=== PATIENT | female | born 1940 | race Caucasian/White ===

== ENCOUNTER → 2019-05-17 10:12 | Outpatient (CLI) | payer MEDICARE, OTHER, SELFPAY ==
--- NOTE | ~2019-05-17 | MM_ITS ---
EXAMINATION: MM screening alyson BI w kai HISTORY: Screening mammogram TECHNIQUE: Craniocaudal and mediolateral oblique 3-D tomosynthesis images were obtained and synthetic 2-D images were generated. CAD analysis was submitted and interpreted. COMPARISON: 03/30/2018, 03/20/2017, 03/18/2016 bilateral digital screening mammogram examinations BREAST PARENCHYMAL COMPOSITION: There are scattered areas of fibroglandular density. FINDINGS: There is no evidence of suspicious mass, calcification, or architectural distortion to sugg est malignancy in either breast. There has been no suspicious interval change. IMPRESSION: 1. No mammographic evidence of malignancy. 2. Recommend routine screening mammography in one year. BI-RADS Category 1: Negative Reviewed, dictated and finalized at location A. WARE APPLICATIONS ARCHITECT
== END ==
PROVIDERS: PCP Internal Medicine; Visit Provider Obstetrics & Gynecology
DX: Z12.31 Encounter for screening mammogram for malignant neoplasm of breast (principal)
CPT/HCPCS: 77063; 77067

== ENCOUNTER 2019-09-05 09:34 | Outpatient (CLI) | payer MEDICARE, OTHER, SELFPAY ==
--- NOTE | 2019-09-05 09:53 | ECHO_ITS ---
Patient Info Name: Evelyn Gee Age: 78 years : 1940 Gender: Female Ht: 63 in Wt: 125 lbs BSA: 1.59 m2 HR: 68 bpm BP: 154 / 85 mmHg Technical Quality: Excellent Exam Date: 09/05/2019 10:06 AM Exam Location: [facility] Patient Status: Outpatient Admit Date: 09/05/2019 Staff Ordering Physician: Carlos A Linda DO Casing Material Weigher: Izabel Cruz RDCS Attending Provider: Carlos A Linda DO Referring Physician: Maddi VILLALTA; Exam Type: CA echo doppler color flow Study Info Indications R01.1 - Cardiac murmur, unspecified Complete two-dimensional, color flow and Doppler transthoracic echocardiogram is performed. Summary 1. Left ventricular chamber dimension is normal. 2. Left ventricular systolic function is normal, estimated at 60-65%. 3. The left ventricular diastolic function is grade I diastolic dysfunction. 4. E/e' 12 is mildly elevated. 5. Global longitudinal strain is abnormal at -12.4%. 6. There is mild mitral valve regurgitation. 7. There is trace tricuspid valve regurgitation. 8. No pulmonary hypertension, estimated pulmonary arterial systolic pressure is 29 mmHg. 9. Small atheroma in anterior and posterior aortic root. Left Ventricle E/e' 12 is mildly elevated. Global longitudinal strain is abnormal at -12.4%. Left ventricular chamber dimension is normal. Left ventricular systolic function is normal, estimated at 60-65%. The left ventricular diastolic function is grade I diastolic dysfunction. Right Ventricle Right ventricular chamber dimension is normal. Right ventricular systolic function is normal. Left Atria Left atrial chamber dimension is normal. Right Atria Right atrial chamber dimension is normal. Aortic Valve The aortic valve is trileaflet. There is no aortic valve stenosis. There is no aortic valve regurgitation. Pulmonic Valve There is no pulmonic regurgitation. Mitral Valve There is no mitral valve stenosis. There is mild mitral valve regurgitation. Tricuspid Valve There is trace tricuspid valve regurgitation. No pulmonary hypertension, estimated pulmonary arterial systolic pressure is 29 mmHg. Pericardium/Pleural There is no pericardial effusion. Inferior Vena Cava Normal inferior vena cava with >50% collapse upon inspiration consistent with normal right atrial pressure, 5 mmHg. Aorta Small atheroma in anterior and posterior aortic root. The aortic root size at the sinus of Valsalva is normal. Left Ventricular Outflow Tract Name Value Normal LVOT 2D LVOT Diameter 1.9 cm LVOT Doppler LVOT Peak Gradient 3 mmHg LVOT Mean Gradient 2 mmHg LVOT VTI 18 cm LVOT VTI/AV VTI Ratio 0.8 LVOT Stroke Volume 54 ml LVOT CO 3.7 l/min LVOT CI 2.3 l/min/m2 Pulmonic Valve Name Value Normal
== END 2019-09-05 09:35 | disposition home or self-care (01) ==
PROVIDERS: PCP Internal Medicine; Visit Provider Internal Medicine
DX: R01.1 Cardiac murmur, unspecified (principal); I35.1 Nonrheumatic aortic (valve) insufficiency
CPT/HCPCS: 93306

== ENCOUNTER 2019-12-18 10:17 | Outpatient (CLI) | payer MEDICARE, OTHER, SELFPAY ==
--- NOTE | ~2019-12-18 | XR_ITS ---
XR sinus min 3V DATE: 12/18/2019 10:46 INDICATION: Bilateral maxillary and frontal pressure, swelling TECHNIQUE: orion Delacruz, lateral and submental vertical views COMPARISON: None FINDINGS: The paranasal sinuses and mastoid air cells appear normally developed and aerated. No air-f luid levels or opacification of the paranasal sinuses are noted. IMPRESSION: Unremarkable paranasal sinuses and mastoid air cells Reviewed, dictated and finalized at location A.
== END 2019-12-18 10:18 | disposition home or self-care (01) ==
LOC: ANHIMG 10:24
PROVIDERS: PCP Internal Medicine; Visit Provider Otolaryngology
DX: J32.9 Chronic sinusitis, unspecified (principal)
CPT/HCPCS: 70220

== ENCOUNTER → 2020-05-22 16:52 | Outpatient (CLI) | payer MEDICARE, OTHER, SELFPAY ==
--- NOTE | ~2020-05-22 | MM_ITS ---
EXAMINATION: MM screening alyson BI w kai HISTORY: Screening TECHNIQUE: Craniocaudal and mediolateral oblique 3-D tomosynthesis images were obtained and synthetic 2-D images were generated. CAD analysis was submitted and interpreted. COMPARISON: Comparison to multiple prior studies sequentially, with oldest reviewed study dated 04/2014. BREAST PARENCHYMAL COMPOSITION: There are scattered areas of fibroglandular density. FINDINGS: There is developing asymmetry in the subareolar location of the right breast. The left leandro st is stable without evidence for malignancy. IMPRESSION: 1. Developing right breast asymmetry. 2. Additional mammographic views and possible breast ultrasound are recommended. BI-RADS Category 0: Incomplete: Needs additional imaging evaluation. Reviewed, dictated and finalized at location A. IMPRESSION: 1. Developing right breast asymmetry. 2. Additional mammographic views and possible breast ultrasound are recommended . BI-RADS Category 0: Incomplete: Needs additional imaging evaluation.
== END ==
PROVIDERS: Visit Provider Obstetrics & Gynecology
DX: Z12.31 Encounter for screening mammogram for malignant neoplasm of breast (principal); R92.8 Other abnormal and inconclusive findings on diagnostic imaging of breast
CPT/HCPCS: 77063; 77067

== ENCOUNTER → 2020-06-15 14:15 | Outpatient (CLI) | payer MEDICARE, OTHER, SELFPAY ==
--- NOTE | ~2020-06-15 | MMUS_ITS ---
EXAMINATION: MM diagnostic mammo unilat RT, US breast RT complete HISTORY: Developing mammographic subareolar asymmetry reported in the right breast on 05/22/2020 scree [facility] mammogram TECHNIQUE: Additional 3-D tomosynthesis images of the right breast were performed and synthetic 2-D i mages were generated. Rolled medial and lateral lateral craniocaudal views. CAD analysis was submitte d and interpreted. High resolution complete right breast ultrasound was performed. COMPARISON: Serial mammograms from 05/22/2020 through 03/14/2014 FINDINGS: MAMMOGRAPHIC FINDINGS: No suspicious reproducible mass lesion is evident. No architectural distortion. No malignant calcific ation, skin thickening or retraction. ULTRASOUND: No suspicious mass or shadowing is detected. IMPRESSION: 1. No mammographic evidence of malignancy 2. Routine annual mammographic screening is recommended. BI-RADS Category 1: Negative Reviewed, dictated and finalized at location A. IMPRESSION: 1. No mammographic evidence of malignancy 2. Routine annual mammographic screening is recommended. BI-RADS Category 1: Negative
== END ==
PROVIDERS: PCP Internal Medicine; Visit Provider Obstetrics & Gynecology
DX: R92.8 Other abnormal and inconclusive findings on diagnostic imaging of breast (principal)
CPT/HCPCS: 76641; 77065

== ENCOUNTER 2021-02-22 00:35 | Day surgery (SDC) | payer MEDICARE, OTHER, SELFPAY ==
[2021-02-10 14:48] VITALS: BMI 22.2
[2021-02-22 08:16] VITALS: BP 170/82; PULSE 74; RESP 18; TEMP 36.4; O2SAT 99; BMI 22.4
[2021-02-22] MEDS: LACTATED RINGERS 1,000 ML 150 ML IV CONT (08:24)
--- NOTE | 2021-02-22 08:36 | WPDANESEPPF ---
Anes - Initial Pre Proc Eval Procedure: Operation Date: 02/22/21 09:00 Proposed Procedures p Esophagogastroduodenoscopy - Justice Og MD Date/Time: 02/22/21 08:36 Surgeon: Justice Og MD Pre Op Diagnosis: GERD Patient Data Age: 80 Gender: F Height: 1.6 m Weight: 57.6 kg Last Vital Signs Temp 36.4 C 02/22/21 08:16 Pulse 74 02/22/21 08:16 Resp 18 02/22/21 08:16 BP 170/82 H 02/22/21 08:16 Pulse Ox 99 02/22/21 08:16 Allergies Allergy/AdvReac Type Severity Reaction Status Date / Time No Known Allergies Allergy Verified 02/22/21 08:15 Home Medications Medication Instructions Recorded Confirmed Type ascorbic acid (vitamin C) 500 mg 500 mg PO DAILY 03/19/19 02/10/21 History capsule aspirin 81 mg tablet,delayed 81 mg PO DAILY 03/19/19 02/10/21 History release dorzolamide-timolol (PF) 2 %-0.5 % 1 drop EACH EYE BID 03/19/19 02/10/21 History eye drops in a dropperette melatonin 3 mg capsule 3 mg PO DAILY 03/19/19 02/10/21 History travoprost 0.004 % eye drops 1 drop EACH EYE QPM 03/19/19 02/10/21 History L.acidoph, paracasei,B. lactis 10 1 cell PO DAILY 12/09/19 02/10/21 History billion cell capsule calcium 500 mg tablet 1,000 mg PO DAILY 12/09/19 02/10/21 History cholecalciferol (vitamin D3) 50 50 mcg PO DAILY 12/09/19 02/10/21 History mcg (2,000 unit) tablet folic acid 400 mcg tablet 0.4 mg PO DAILY 12/09/19 02/10/21 History glucosamine HWg-unn-ztpjckzqpeh 1 tablet PO TID 12/09/19 02/10/21 History 400 mg-200 mg-333 mg tablet iodine (kelp) 1 tablet PO DAILY 12/09/19 02/10/21 History utngpoud-rel-wenflv 5 mg-zeaxanth 1 cap PO DAILY 12/09/19 02/10/21 History 1 mg-bilberry 7.5 mg-herbal capsule multivitamin 1 tablet PO DAILY 12/09/19 02/10/21 History vitamin B12 500 mcg-folic acid 400 2 tablet PO DAILY tablet 12/09/19 02/10/21 History mcg tablet vitamins A and D3, cod liver oil 5 ml PO DAILY 12/09/19 02/10/21 History 4,000 unit-400 unit/5 mL oral liquid balsalazide 750 mg capsule 2,250 mg PO TID 01/06/20 02/10/21 History levothyroxine 50 mcg tablet 50 mcg PO DAILY #90 tablet 09/11/20 02/10/21 Rx rosuvastatin 40 mg tablet 40 mg PO DAILY #90 tablet 12/21/20 02/10/21 Rx multivitamin with minerals 1 tablet PO DAILY 01/13/21 02/10/21 History omeprazole 20 mg capsule,delayed 20 mg PO DAILY 01/13/21 02/10/21 History release trospium 20 mg tablet 20 mg PO BID 01/13/21 02/10/21 History felodipine 10 mg tablet,extended 10 mg PO DAILY #90 tablet 02/19/21 Rx release 24 hr Patient hx anesthesia problems: none Family hx anesthesia problems: none Results Review: All pre-operative results and documents have been reviewed as part of the pre-operative evaluation. [facility] Past Medical History Medical History (Updated 01/16/21 @ 11:41 by Carlos A Linda DO) Acid reflux Stroke Family History Family History Mother Patient's mother is Father Patient's father is Acute myocardial infarction Sibling Acute myocardial infarction Social History Social History Smoking status: Never smoker Second hand tobacco smoke exposure: No Alcohol intake: never Substance use: never Living arrangements: with family Spiritual care concerns: No Anes - Eval Final PreProcedure Day of Procedure 02/22/21 08:36 Patient weight: normal Heart: regular rate and rhythm Lungs: clear to auscultation Airway: Mallampati scale class II Neurological: alert and oriented Last oral intake: >/= 8 hours ASA classification: III Emergent: no Anesthetic plan: proceed Anesthesia type and monitoring: general GIVS and standard monitoring Results Review: All pre-operative results and documents have been reviewed as part of the pre-operative evaluation. Informed Consent: The patient's anesthetic plan and its attendant risks and
--- NOTE | 2021-02-22 08:51 | WPDGICN ---
Assessment and Plan Assessment and plan (1) Indeterminate colitis: Code(s): K52.3 - Indeterminate colitis Status: Acute Assessment and Plan: Patient with a history of microscopic lymphocytic colitis. Currently stable on balsalazide. (2) Acid reflux: Code(s): K21.9 - Gastro-esophageal reflux disease without esophagitis Status: Acute Assessment and Plan: Patient is suspected to have acid reflux. However symptoms are present include a cough and voice changes. Currently on a trial of omeprazole. EGD will be performed to assess. GI Consult Note Consult date/time: 02/22/21 08:51 HPI: Evelyn Gee is a 80 year old female Presents for EGD. She states over the last year has had a cough. She she notices changes in her voice. She is referred for an EGD because of concerns over acid reflux. Patient denies any heartburn. She has noted dysphagia. She has no complaints of regurgitation. She has been given a trial of omeprazole but of uncertain response. Family history is noncontributory. Past medical history of lymphocytic colitis is stable on balsalazide.. Her bowel movements are reported to be normal at this time. Review of Systems Review of Systems: All systems reviewed & are unremarkable except as noted in HPI and below PMFSH Past Medical History Medical History (Updated 01/16/21 @ 11:41 by Carlos A Linda DO) Acid reflux Stroke Family History Family History Mother Patient's mother is Father Patient's father is Acute myocardial infarction Sibling Acute myocardial infarction Social History Social History Smoking status: Never smoker Second hand tobacco smoke exposure: No Alcohol intake: never Substance use: never Living arrangements: with family Spiritual care concerns: No Meds Home Medications and Allergies Home Medications Medication Instructions Recorded Confirmed Type ascorbic acid (vitamin C) 500 mg 500 mg PO DAILY 03/19/19 02/10/21 History capsule aspirin 81 mg tablet,delayed 81 mg PO DAILY 03/19/19 02/10/21 History release dorzolamide-timolol (PF) 2 %-0.5 % 1 drop EACH EYE BID 03/19/19 02/10/21 History eye drops in a dropperette melatonin 3 mg capsule 3 mg PO DAILY 03/19/19 02/10/21 History travoprost 0.004 % eye drops 1 drop EACH EYE QPM 03/19/19 02/10/21 History L.acidoph, paracasei,B. lactis 10 1 cell PO DAILY 12/09/19 02/10/21 History billion cell capsule calcium 500 mg tablet 1,000 mg PO DAILY 12/09/19 02/10/21 History cholecalciferol (vitamin D3) 50 50 mcg PO DAILY 12/09/19 02/10/21 History mcg (2,000 unit) tablet folic acid 400 mcg tablet 0.4 mg PO DAILY 12/09/19 02/10/21 History glucosamine ICj-yvl-lwbdeixybll 1 tablet PO TID 12/09/19 02/10/21 History 400 mg-200 mg-333 mg tablet iodine (kelp) 1 tablet PO DAILY 12/09/19 02/10/21 History bjwyryap-auj-hdbppn 5 mg-zeaxanth 1 cap PO DAILY 12/09/19 02/10/21 History 1 mg-bilberry 7.5 mg-herbal capsule multivitamin 1 tablet PO DAILY 12/09/19 02/10/21 History vitamin B12 500 mcg-folic acid 400 2 tablet PO DAILY tablet 12/09/19 02/10/21 History mcg tablet vitamins A and D3, cod liver oil 5 ml PO DAILY 12/09/19 02/10/21 History 4,000 unit-400 unit/5 mL oral liquid balsalazide 750 mg capsule 2,250 mg PO TID 01/06/20 02/10/21 History levothyroxine 50 mcg tablet 50 mcg PO DAILY #90 tablet 09/11/20 02/10/21 Rx rosuvastatin 40 mg tablet 40 mg PO DAILY #90 tablet 12/21/20 02/10/21 Rx multivitamin with minerals 1 tablet PO DAILY 01/13/21 02/10/21 History omeprazole 20 mg capsule,delayed 20 mg PO DAILY 01/13/21 02/10/21 History release trospium 20 mg tablet 20 mg PO BID 01/13/21 02/10/21 History felodipine 10 mg tablet,extended 10 mg PO DAILY #90 tablet 02/19/21 Rx release 24 hr Allergies Allergy/A
[2021-02-22] MEDS: BENZOCAINE (*SP) 60 ML SPRAY CAN (HURRICAINE) 1 SPRAY MUCOUS MEM (09:04)
[2021-02-22 09:15] VITALS: BP 146/71; PULSE 66; RESP 20; O2SAT 95
[2021-02-22 09:25] VITALS: BP 168/87; PULSE 67; RESP 20; O2SAT 96
[2021-02-22 09:30] VITALS: BP 158/85; PULSE 67; RESP 19; O2SAT 95
== END 2021-02-22 09:52 | disposition home or self-care (01) ==
PROVIDERS: PCP Internal Medicine; Visit Provider Internal Medicine Gastroenterology
PROC: 0DJ08ZZ Inspection of Upper Intestinal Tract, Via Natural or Artificial Opening Endoscopic (ICD-10-PCS; CPT 43235; principal; 2021-02-22 09:00)
DX: K21.9 Gastro-esophageal reflux disease without esophagitis (principal); Q39.4 Esophageal web; K52.3 Indeterminate colitis; Z86.73 Personal history of transient ischemic attack (TIA), and cerebral infarction without residual deficits
CPT/HCPCS: 43235; 43450; J2704; J7120

== ENCOUNTER → 2021-07-29 13:16 | Outpatient (CLI) | payer MEDICARE, OTHER, SELFPAY ==
--- NOTE | ~2021-07-29 | MM_ITS ---
EXAMINATION: MM screening alyson BI w kai HISTORY: Screening mammogram TECHNIQUE: Craniocaudal and mediolateral oblique 3-D tomosynthesis images were obtained and synthetic 2-D images were generated. CAD analysis was submitted and interpreted. COMPARISON: 06/15/2020, 05/22/2020, 05/17/2019 BREAST PARENCHYMAL COMPOSITION: There are scattered areas of fibroglandular density. FINDINGS: There is no suspicious mass, calcification, or architectural distortion to suggest malignan cy in either breast. There has been no suspicious interval change. IMPRESSION: 1. No mammographic evidence of malignancy. 2. Recommend routine screening mammography while the patient remains in good health. BI-RADS Category 1: Negative Reviewed, dictated and finalized at location A. IMPRESSION: 1. No mammographic evidence of malignancy. 2. Recommend routine screening mammography while the patient remains in good he alth. BI-RADS Category 1: Negative
== END ==
PROVIDERS: PCP Internal Medicine; Visit Provider Obstetrics & Gynecology
DX: Z12.31 Encounter for screening mammogram for malignant neoplasm of breast (principal)
CPT/HCPCS: 77063; 77067

== ENCOUNTER 2021-10-26 13:35 | Outpatient (CLI) | payer MEDICARE, OTHER, SELFPAY ==
--- NOTE | ~2021-10-26 | US_ITS ---
EXAMINATION: US carotid duplex BI DATE: 10/26/2021 14:14 INDICATION: Transient ischemic attack. Carotid atherosclerosis and stenosis. TECHNIQUE: Grayscale, color Doppler, and pulsed Doppler images of the cervical carotid arteries were obtained. The degree of vessel stenosis is placed in one of the following categories: normal, <50%, 5 0-69%, >=70% but less than near-occlusion, near-occlusion, or total occlusion. Note that percent sten osis relative to normal distal artery lumen diameter is indirectly measured from velocity measurement s as described by Kameron, et al. Radiology 2003; 229:340-346. COMPARISON: 01/27/2017 FINDINGS: RIGHT: The right common carotid artery (CCA) peak systolic velocity (PSV) is 97 cm/s. The right internal car otid artery (ICA) PSV is 154 cm/s. The right ICA end-diastolic velocity (EDV) is 33 cm/s. The right I CA/CCA PSV ratio is 1.6. Grayscale and color Doppler images including secondary Doppler criteria yiel d an estimate of <50% diameter reduction from plaque in the ICA. The external carotid artery (ECA) PS V is 56 cm/s. There is antegrade flow in the right vertebral artery. LEFT: The left CCA PSV is 77 cm/s. The left ICA PSV is 9424 cm/s. The left ICA EDV is 1.2 cm/s. The left IC A/CCA PSV ratio is 1.2. Grayscale and color Doppler images yield an estimate of <50% diameter reducti on from plaque in the ICA. The ECA PSV is 63 cm/s. There is antegrade flow in the left vertebral taylor ry. IMPRESSION: 1. <50% stenosis in the right internal carotid artery. 2. <50% stenosis in the left internal carotid artery. Reviewed, dictated and finalized at location A.
== END 2021-10-26 13:36 | disposition home or self-care (01) ==
PROVIDERS: PCP Internal Medicine; Visit Provider Student in an Organized Health Care Education/Training Program
DX: Z86.73 Personal history of transient ischemic attack (TIA), and cerebral infarction without residual deficits (principal); I65.23 Occlusion and stenosis of bilateral carotid arteries
CPT/HCPCS: 93880

== ENCOUNTER 2022-01-21 10:39 | Emergency (ER) | payer MEDICARE, OTHER, SELFPAY ==
[2022-01-21] VITALS (13 sets, daily range): BP systolic 163–170; BP diastolic 73–82; PULSE 68; RESP 16; TEMP 36.7; O2SAT 93–100
--- NOTE | ~2022-01-21 | XR_ITS ---
EXAMINATION: XR chest 2V DATE: 01/21/2022 11:14 INDICATION: Cough and congestion TECHNIQUE: PA and lateral views of the chest are obtained. COMPARISON: 01/27/2017, 09/01/2006 FINDINGS: The lungs are free of acute opacities. No pleural effusion or pneumothorax. The cardiomedia stinal silhouette is normal. There is severe thoracic spondylosis. IMPRESSION: 1. No acute cardiopulmonary abnormality. Reviewed, dictated and finalized at location B. CARE INSTRUCTOR
--- NOTE | ~2022-01-21 | CT_ITS ---
EXAMINATION: CT brain wo con INDICATION: Vision and hearing changes COMPARISON: 01/27/2017 TECHNIQUE: Standard unenhanced head CT. The dose-length product (DLP) was 605.33 mGy-cm. The mA was a djusted according to patient size. Iterative reconstruction technique was employed. FINDINGS: There is no acute intraparenchymal hemorrhage. No evidence of mass lesion. No evidence of a cute infarction. There are prior infarction in the left basal ganglia and left occipital lobe. There is mild periventricular and subcortical hypodensity probably related to small vessel ischemic disease . There is mild prominence of the sulci and ventricles related to cerebral atrophy. Intracranial calc ified cerebral atherosclerosis is noted. There are no extra-axial collections. There is no mass effec t or midline shift. Changes in the globes are likely from ocular lens surgery. The visualized sinuses and mastoid air cells are well aerated. IMPRESSION: 1. Areas of prior infarction without acute intracranial abnormality. 2. Age related findings. Reviewed, dictated and finalized at location B. WORKING MACHINE SETTER
--- NOTE | 2022-01-21 10:45 | ECG_ITS ---
Measurements Intervals [place] Rate: 64 P: 57 CA: 210 QRS: -50 QRSD: 98 T: 66 QT: 399 QTc: 413 Interpretive Statements SINUS RHYTHM WITH FIRST DEGREE AV BLOCK INCOMPLETE RIGHT BUNDLE BRANCH BLOCK LEFT ANTERIOR FASCICULAR BLOCK VOLTAGE CRITERIA FOR LVH CANNOT RULE OUT SEPTAL INFARCT, AGE INDETERMINATE BASELINE ARTIFACT- I, III ABNORMAL ECG NO PREVIOUS ECG AVAILABLE FOR COMPARISON Electronically Signed On 01-21-2022 11:55:56 MOLDER FEEDER by Jd Dee D.O.
[2022-01-21 11:17] LABS: Basophils Percent Auto 0.3 % (0.2-1.2); Eosinophils Absolute Auto 0.1 K/mm3 (0-0.3); Eosinophils Percent Auto 1.5 % (0-4.4); Hematocrit 41.1 % (37.0-47.0); Immature Granulocyte Absolute 0.01 K/mm3 (0.00-0.031); Immature Granulocyte Percent A 0.2 % (0-0.5); Lymphocytes Absolute Auto 1.26 K/mm3 (0.9-3.2); Mean Corpuscular HGB Conc 31.6 g/dl (32-36); Mean Corpuscular Hemoglobin 29.1 pg (26-34); Mean Corpuscular Volume 91.9 fl (80-100); Mean Platelet Volume 11.5 fl (7.4-10.4); Monocytes Absolute Auto 0.5 K/mm3 (0.1-0.6); Monocytes Percent Auto 8.3 % (2.6-8.5); Neutrophils Absolute Auto 4.1 K/mm3 (1.3-6.7); Neutrophils Percent Auto 68.7 % (45.5-73.1); Platelet Count Result 180 k/mm3 (150-375); Red Blood Count 4.47 M/mm3 (4.2-5.4); Red Cell Distribution Width 12.7 % (11.5-14.5)
[2022-01-21 11:26] LABS: Alanine Aminotransferase 19 U/L (6-35); Albumin Level 4.3 g/dL (3.5-5.1); Alkaline Phosphatase 55 U/L (38-126); Anion Gap 11 mmol/L (8-16); Aspartate Amino Transferase 33 U/L (14-36); Bilirubin,Total 1.7 mg/dL (0.2-1.3); Blood Urea Nitrogen 17 mg/dL (7-17); Calcium 8.7 mg/dL (8.4-10.2); Carbon Dioxide 27 mmol/L (22-30); Chloride 103 mmol/L (98-107); Estimated CRCL calculation 34 ml/min; Estimated Glomerular Filt Rate 60; Glucose 80 mg/dL (65-110); Potassium 3.8 mmol/L (3.4-5.0); Sodium 141 mmol/L (137-145)
[2022-01-21 11:38] LABS: Troponin I < 0.012 ng/mL (0.000-0.034)
[2022-01-21 12:04] LABS: Partial Thromboplastin Time 29.9 SECONDS (22.3-36.8)
[2022-01-21 12:15] LABS: INR 1.1; Prothrombin Time 13.4 Seconds (11.1-14.7)
--- NOTE | 2022-01-21 13:46 | ED.GENADULT ---
HPI - General Adult General Chief complaint: Unspecified <PARI Blanchard Last Filed: 01/21/22 18:58> Stated complaint: muffled hearing left side <PARI Blanchard Last Filed: 01/21/22 18:58> Time Seen by Provider: 01/21/22 13:40 <PARI Blanchard Last Filed: 01/21/22 18:58> Source: patient <PARI Blanchard Last Filed: 01/21/22 18:58> Mode of arrival: ambulatory <PARI Blanchard Last Filed: 01/21/22 18:58> Limitations: no limitations <PARI Blanchard Last Filed: 01/21/22 18:58> History of Present Illness HPI narrative: Patient is an 81-year-old female who presents to the ED with report of decreased hearing from left ear. Patient reports she has felt in her normal state of health recently, but woke up this morning with muffled hearing in her left ear. She states she can hear out of her right ear normally. She also reported having a static-like sensation from her left ear whenever she would talk. Patient reports a history of CVA in 2017 with no residual deficits. She denies any other neurologic symptoms, vision changes, dizziness, lightheadedness, headache, focal weakness, slurred speech, confusion, dysphagia, numbness, tingling, ear pain, recent cough or cold symptoms. <PARI Blanchard Last Filed: 01/21/22 18:58> Related Data Home medications: Home Medications Medication Instructions Recorded Confirmed ascorbic acid (vitamin C) 500 mg 500 mg PO DAILY 03/19/19 08/04/21 capsule aspirin 81 mg tablet,delayed 81 mg PO DAILY 03/19/19 08/04/21 release (Adult Low Dose Aspirin) dorzolamide-timolol (PF) 2 %-0.5 % 1 drop ophthalmic (eye) BID 03/19/19 08/04/21 eye drops in a dropperette (Cosopt (PF)) melatonin 3 mg capsule 3 mg PO DAILY 03/19/19 08/04/21 travoprost 0.004 % eye drops 1 drop ophthalmic (eye) QPM 03/19/19 08/04/21 (Travatan Z) L.acidoph, paracasei,B. lactis 10 1 cell PO DAILY 12/09/19 08/04/21 billion cell capsule (Digestive Advantage Advanced Probiotic) calcium 500 mg tablet 1,000 mg PO DAILY 12/09/19 08/04/21 cholecalciferol (vitamin D3) 50 50 mcg PO DAILY 12/09/19 08/04/21 mcg (2,000 unit) tablet folic acid 400 mcg tablet 0.4 mg PO DAILY 12/09/19 08/04/21 glucosamine JIw-ozw-oeavdkpzxkt 1 tablet PO TID 12/09/19 08/04/21 400 mg-200 mg-333 mg tablet iodine (kelp) 1 tablet PO DAILY 12/09/19 08/04/21 mtyxjjvb-gcx-ssydaw 5 mg-zeaxanth 1 cap PO DAILY 12/09/19 08/04/21 1 mg-bilberry 7.5 mg-herbal capsule multivitamin (Daily Multi-Vitamin 1 tablet PO DAILY 12/09/19 08/04/21 tablet) vitamin B12 500 mcg-folic acid 400 2 tablet PO DAILY 12/09/19 08/04/21 mcg tablet vitamins A and D3, cod liver oil 5 ml PO DAILY 12/09/19 08/04/21 4,000 unit-400 unit/5 mL oral liquid balsalazide 750 mg capsule 2,250 mg PO TID 01/06/20 08/04/21 multivitamin with minerals 1 tablet PO DAILY 01/13/21 08/04/21 (Hair,Skin and Nails tablet) omeprazole 20 mg capsule,delayed 20 mg PO DAILY 01/13/21 08/04/21 release trospium 20 mg tablet 20 mg PO BID 01/13/21 08/04/21 <Radha Self PA-C - Last Filed: 01/21/22 18:58> Allergies/adverse reactions: Allergies Allergy/AdvReac Type Severity Reaction Status Date / Time No Known Allergies Allergy Verified 10/20/21 13:09 <Radha Self PA-C - Last Filed: 01/21/22 18:58> Review of Systems Review of Systems: CONSTITUTIONAL: Denies fever, chills, or sweats. EYES: Denies visual changes. ENT: Reports muffled hearing left ear, static sensation to left ear. Denies ear pain, rhinorrhea, congestion, sore throat. CARDIOVASCULAR: Denies chest pain. RESPIRATORY: Denies cough or dyspnea. GASTROINTESTINAL: Denies abdominal pain, nausea, vomiting, or diarrhea. NEUROLOGIC: Denies headache, dizziness, lightheadedness, slurred speech, confusion, dysphagia, numbness, or focal weakness. <Radha Self PA-C - Last Kyaw
[2022-01-21 14:55] LABS: Glucose Point of Care 106 mg/dl (65-105)
[2022-01-21] MEDS: CARBAMIDE PEROXIDE 6.5% OT SOLN 15 ML BTL 5 DROP EACH EAR (16:24)
== END 2022-01-21 18:15 | disposition home or self-care (01) ==
PROVIDERS: Emergency Medicine; Emergency Provider Preventive Medicine Aerospace Medicine; PCP Internal Medicine
DX: H61.23 Impacted cerumen, bilateral (principal); I65.02 Occlusion and stenosis of left vertebral artery; E03.9 Hypothyroidism, unspecified; E78.00 Pure hypercholesterolemia, unspecified; K21.9 Gastro-esophageal reflux disease without esophagitis; Z86.73 Personal history of transient ischemic attack (TIA), and cerebral infarction without residual deficits; Z79.82 Long term (current) use of aspirin; I44.0 Atrioventricular block, first degree; I45.2 Bifascicular block; R94.31 Abnormal electrocardiogram [ECG] [EKG]
CPT/HCPCS: 36415; 69209; 70450; 71046; 80053; 82948; 84484; 85025; 85610; 85730; 93005; 99284; A9270

== ENCOUNTER 2024-03-01 10:17 | Outpatient (CLI) | payer MEDICARE, OTHER, SELFPAY ==
--- NOTE | ~2024-03-01 | US_ITS ---
US renal BI 03/01/2024 10:59 Procedure: Realtime transabdominal ultrasound of the kidneys and bladder. Indication: Abnormal renal function studies Comparison: No prior studies for comparison. Findings: Renal echotexture is normal bilaterally without hydronephrosis, contour deforming mass or r enal calculus. The right kidney measures 8.5 cm and left kidney measures 8.9 cm. Bladder within norm al limits. Impression: 1: Unremarkable renal ultrasound. No stones, masses or hydronephrosis. Reviewed, dictated and finalized at location B. INT SORTER Impression: 1: Unremarkable renal ultrasound. No stones, masses or hydronephrosis.
--- OUTSIDE RECORDS SUMMARY | 2024-03-09 01:48 | XMS_ITS | Encounter Summary ---
Author Organization [facility] Address [address] [place] [address] Phone Care Team Providers Care Patrol Conductor Name Role Phone Carlos A Linda MD Primary Care Provider +1- [phone] Unknown, Notinfile Primary Care Provider Unavail able Encounter Details Date Type Department Care Team (Late st Contact Info) Description 07/27/2021 Orders Only [facility] Scanning, Provider Social History Tobacco Use Types Packs/Day Years Used Date Smoking Tobacco: Never Smokeless Tobacco: Never Comments Unknown Sex and Gender Information Value Date Recorded Sex Assigned at Not on file 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 Gender Identity Female 09/20/2019 11:25 AM CDT Sexual Orientation Not on file documented as of this encounter Plan of Treatment Not on file documented as of this encounter Procedures Procedure Name Priority Date/Time Associated Diagnosis Comments SCAN - LABS 07/27/2021 documented in this encounter Results * SCAN - LABS (07/27/2021) us Provider Scanning Final Result documented in this encounter Visit Diagnoses Not on filedocumented in this encounter Care Teams Patrol Conductor Relationship Specialty Start Date End Date Carlos A Linda MD [address] [place] [address] PCP - General 09/05/16 10/26/23 Unknown, Notinfile PCP - General 10/27/23 documented as of this encounter
== END 2024-03-01 10:18 | disposition home or self-care (01) ==
PROVIDERS: PCP Internal Medicine; Visit Provider Internal Medicine Nephrology
DX: R94.4 Abnormal results of kidney function studies (principal)
CPT/HCPCS: 76775

== ENCOUNTER 2024-08-23 14:22 | Outpatient (CLI) | payer MEDICARE, OTHER, SELFPAY ==
--- NOTE | ~2024-08-23 | US_ITS ---
EXAMINATION: US carotid duplex BI DATE: 08/23/2024 15:18 INDICATION: Personal history of transient ischemic attack. Carotid atherosclerosis. TECHNIQUE: Grayscale, color Doppler, and pulsed Doppler images of the cervical carotid arteries were obtained. The degree of vessel stenosis is placed in one of the following categories: normal, <50%, 5 0-69%, >=70% but less than near-occlusion, near-occlusion, or total occlusion. Note that percent sten osis relative to normal distal artery lumen diameter is indirectly measured from velocity measurement s as described by Kameron, et al. Radiology 2003; 229:340-346. COMPARISON: None. FINDINGS: RIGHT: The right common carotid artery (CCA) peak systolic velocity (PSV) is 64 cm/s. The right internal car otid artery (ICA) PSV is 98 cm/s. The right ICA end-diastolic velocity (EDV) is 14 cm/s. The right IC A/CCA PSV ratio is 1.5. Grayscale and color Doppler images yield an estimate of <50% diameter reducti on from plaque in the ICA. The external carotid artery (ECA) PSV is 46 cm/s. There is antegrade flow in the right vertebral artery. LEFT: The left CCA PSV is 65 cm/s. The left ICA PSV is 77 cm/s. The left ICA EDV is 22 cm/s. The left ICA/C CA PSV ratio is 1.2. Grayscale and color Doppler images yield an estimate of <50% diameter reduction from plaque in the ICA. The ECA PSV is 64 cm/s. There is antegrade flow in the left vertebral artery. IMPRESSION: 1. <50% stenosis in the right internal carotid artery. 2. <50% stenosis in the left internal carotid artery. Reviewed, dictated and finalized at location A.
--- OUTSIDE RECORDS SUMMARY | 2024-08-23 14:32 | XMS_ITS | Clinical Summary ---
Author Organization [facility] Address [address] [place] [address] Care Team Providers Care Operator Assistant I Cementing Name Role Phone Unavailable Primary Care Provider Unavailabl e Source Comments [facility],non-owned Affiliates and Associated Physician Practices is amultiple site organization consisting of ambulatory clinics and hospital sitesin [place], [place], [place] and [place]. This disclosure is being madepursuant to the Care Everywhere program and may not contain all information available regarding this patient. 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[employer] Gender Identity Not on file Sexual Orientation Not on file Plan of Treatment Health Maintenance Due Date Last Done Comments BONE DENSITY TESTING 1940 MEDICARE AWV 12 MONTHS 1940 DTAP/TDAP/TD VACCINES (1 - Tdap) 1957 PNEUMOCOCCAL VACCINE 50+ (1 of 1 - PCV) 1988 ZOSTER VACCINE (1 of 2) 1988 Respiratory Syncytial Virus (RSV) Vaccine Pt: or over 60 yrs (1 - 1-dose 75+ series) 2013 COVID-19 VACCINE ( - 2023-2 5 season) 2023 DEPRESSION SCREENING 03/13/2024 INFLUENZA VACCINE (Season Ended) 2024 HEPATITIS B VACCINE Aged Out No longe r eligible based on patient's age to complete this topic HIB VACCINE Aged Out No longer eligi ble based on patient's age to complete this topic HPV VACCINE Aged Out No longer eligi ble based on patient's age to complete this topic MENINGOCOCCAL (Group B) VACC INE SHARED DECISION-MAKING Aged Out No longer eligibl e based on patient's age to complete this topic MENINGOCOCCAL GROUPS A/C/Y/W VACCINE Aged Out No longer eligible b ased on patient's age to complete this topic Insurance MEDICARE [place]
--- OUTSIDE RECORDS SUMMARY | 2024-08-23 14:32 | XMS_ITS | Referral Summary ---
Author Organization [facility] Address [address] [place] [address] Care Team Providers Care Dna Sequencing Associate Name Role Phone Unknown, Notinfile Primary Care Provider Unavail able Allergies No known active allergies Medications dorzolamide-dede oloL (COSOPT) 22.3-6.8 mg/mL ophthalmic solution 2 times daily. Active calcium phosphate/antony onin (CALCIUM-MELATO THERESA) 112-3 mg tablet TAKE DIRECTED. Active levothyroxine (SYNTHROID, LEVOTHROID) 50 mcg tablet 0 06/19/2017 Active vit W-Rb-hzr-lyco-b ilber-hb261 100 unit- 12.5 mg capsule daily. Active multivitamin tabletIndicatio ns:Vitamin Deficiency Prevention daily. Active travoprost, benzalkonium, (TRAVATAN) 0.004 % ophthalmic solution daily. Active ascorbic acid (VITAMIN C) 500 mg tablet,chewable TAKE 2 TABLET DAILY. Active cholecalciferol (VITAMIN D-3) 2,000 unit tablet Take 1 tablet by mouth daily Active felodipine (PLENDIL) 10 mg 24 hr tablet 1 09/09/2017 Active rosuvastatin (CRESTOR) 40 mg tablet 1 09/12/2017 Active aspirin 81 mg tablet Take 1 tablet (81 mg total) by mouth daily Active UNABLE TO FIND 150 each SEA KELP Active trospium (SANCTURA) 20 mg tablet 0 12/04/2017 Active CALCIUM CITRATE ORAL Take by mouth Active LUTEIN-ZEAXANTH IN-BILBERRY EXT ORAL Take by mouth Active balsalazide (COLAZAL) 750 mg capsuleIndicati ons:Lymphocytic colitis TAKE 3 CAPSULES BY MOUTH THREE TIMES DAILY 270 capsule 11 09/25/2023 Active Active Problems Problem Noted Date Diagnosed Date At average risk for colon cancer 10/16/2021 Assessment & Plan (10/16/2021 9:48 AM CDT): As the patient has lymphocytic colitis does not increase her risk for colon cancer and her last colonoscopy in 2016 as well as the 1 prior to this had no evidence polyps, she would not be due for a colonoscopy until 2026. At that point the patient may be at greater risk of the procedure then colon cancer, so we would re- evaluate her functional status as we get closer to that time frame Lymphocytic colitis 09/29/2017 Assessment & Plan (10/16/2021 9:47 AM CDT): The patient continues to do well on low-dose balsalazide. We would like to continue this for the foreseeable future. At least once a year we would like to have a CMP checked. We will also check CBC this year. With regards to her hard stools we would encourage her to try a stool softener, incorporating more fiber, and more water. If necessary she can also consider very low-dose MiraLax. Assessment & Plan (09/20/2019 5:11 PM CDT): The patient continues to do well and currently is only using 3 capsules of balsalazide daily with good control of her lymphocytic colitis. Given her previous complaint was the high cost of balsalazide, this should stretch out her co-pay and allow her to increase her dose if needed for flare symptoms. There is a very low risk of interstitial nephritis with 5 ASA so we will check a CMP at her convenience. This can be timed with her labs from her PCP. As lymphocytic colitis does not increase her risk for colon cancer and she has not had any polyps on her last 2 colonoscopies, she may not need further colonoscopies based on current guidelines. Plan 1. Continue balsalazide 3 capsules daily. Patient can increase her dose if necessary for flare symptoms 2. Check CMP for kidney function once a year 3. 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 Gender Identity Female 09/20/2019 11:25 AM CDT Sexual Orientation Not on file Last Filed Vital Signs Vital Sign Reading Time Taken Comments Blood Pressure 127/70 10/27/2023 10:43 AM CDT Pulse 57 10/27/2023 10:43 AM CDT Temperature 36.8 C (98.2 F) 10/27/2023 10:43 AM CDT Respiratory Rate 16 10/27/2023 10:4 3 AM CDT Oxygen Saturation 97% 10/27/2023 10: 43 AM CDT Inhaled Oxygen Concentration - - Weight 53.9 kg (118 lb 12.8 oz) 024 10:43 AM CDT Height 157.5 cm (5' 2) 10/27/2023 10:4 3 AM CDT Body Mass Index 21.73 10/27/2023 10:43 AM CDT Plan of Treatment Not on file Insurance MEDICARE [facility] [place] [address] [employer] Care Teams Dna Sequencing Associate Relationship Specialty Start Date End Date Unknown, Notinfile PCP - General 10/27/23
--- OUTSIDE RECORDS SUMMARY | 2024-08-23 14:32 | XMS_ITS | Continuity of Care Document ---
Author Organization [facility] Address [address] [place] [address] [place] [address] Phone Care Team Providers Care Benefits Sales Consultant Name Role Phone [facility] Unavailable Unavail able Norma Chambers Unavailable Unavailable Advance Directives Directive Yes / No Effective Date File Name No Information Encounters Encounter Description Practice Location Reason(s) For Visit Diagnoses Date Provider Providers Copied on Encounter [facility], [id number] [place] [address] [address], [place], [place], [id number], [place] tel:[phone] [facility] No Information Feb- 1200 5 [facility] [address], [address], [place], [place], [id number] , [place]. tel:[phone] Consulting Provider: Norma Chambers, [address] [place] [address], [place], [address]. tel:[phone] Family History Family Member Type Diagnosis Age At Onset No Information Payers Payer name Insurance type Covered republican ID Authoriza tion(s) No Information Social History [...]
--- OUTSIDE RECORDS SUMMARY | 2024-08-23 14:32 | XMS_ITS | Encounter Summary ---
Author Organization [facility] Address [address] [place] [address] Care Team Providers Care Billet Heater Name Role Phone Unavailable Primary Care Provider Unavailabl e Encounter Details Date Type Department Care Team (Late st Contact Info) Description 08/25/2021 Lab Requisition [facility] [address] [place] [id number] Ta Martin MD [address] [place] [address] Social History Tobacco Use Types Packs/Day Years Used Date Smoking Tobacco: Never Assessed Comments Unknown Sex and Gender Information Value Date Recorded Sex Assigned at Not on file 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 Gender Identity Not on file Sexual Orientation Not on file documented as of this encounter Plan of Treatment Not on file documented as of this encounter Procedures Procedure Name Priority Date/Time Associated Diagnosis Comments DERMATOPATHOLOGY Routine 08/24/2021 12:0 0 AM CDT documented in this encounter Results * DERMATOPATHOLOGY (08/24/2021 12:00 AM CDT) Case Report Dermatopathology Report Case: [id number] Authorizing Provider: Ta Martin MD Collected: 08/24/2021 12:00 AM Ordering Location: [facility] Received: 08/25/2021 10:19 AM Pathologist: Rosibel Guerrero MD Specimens: A) - Skin, right mid back B) - Skin, left deltoid 12:54 PM CDT DERMATOPATHOLOGY LABORATORY Final Diagnosis Specimen A. SKIN, right mid back: SPONGIOTIC DERMATITIS WITH EOSINOPHILS (L30.8) (see microscopic description and comment) Specimen B. SKIN, left deltoid: SPONGIOTIC DERMATITIS WITH EOSINOPHILS (L30.8) (see microscopic description and comment) 2 12:54 PM T DERMATOPATHOLOGY LABORATORY at 1254 CDT Clinical History A-B: R/O Papular Urticaria 2 12:54 PM T DERMATOPATHOLOGY LABORATORY Gross Description Specimen A: Received is one formalin filled container labeled with the patient's name and designated right mid back. The specimen consists of a shave biopsy measuring [id number]. Jar 0. Specimen B: Received is one formalin filled container labeled with the patient's name and designated left deltoid. The specimen consists of a shave biopsy measuring [id number]. Jar 0. 2 12:54 PM T DERMATOPATHOLOGY LABORATORY Microscopic Description Specimen A. SKIN, right mid back: The histologic features are similar in specimens A and B. There is focal parakeratosis and spongiosis. The spongiosis is focally involving the acrosyringium of eccrine glands. In the dermis there is a mainly superficial perivascular lymphohistiocytic inflammatory infiltrate with eosinophils. Dermal edema is noted. Grocott's methenamine silver (GMS) stain fails to highlight fungal elements in the available sections. COMMENT (specimens A and B): The histological differential diagnosis includes a contact dermatitis, an eczematous drug eruption, miliaria rubra, and less likely the urticarial phase of bullous pemphigoid. Specimen B. SKIN, left deltoid: See microscopic description and comment in specimen A. 2 12:54 PM T DERMATOPATHOLOGY LABORATORY Disclaimer An external and internal positive and negative controls are appropriate for the histochemical, immunohistochemical and immunofluorescence stain(s) in this case (if any), except where stated explicitly. The performance characteristics of the stain(s) cited in this report were developed and its performance characteristic determined by the Dermatopathology Laboratory at [facility], directed by Dr. Dawson Martines. These tests need not be, and therefore are not, approved by the [place] Food and Drug Administration. The tests are used for clinical purposes. Billing Codes Specimen Charges Stain Charges 79889 49033 1 1 29153 24860 1 1 2 12:54 PM CDT DERMATOPATHOLOGY LABORATORY Embedded Images 12:54 PM CDT DERMATOPATHOLOGY LABORATORY Pathology/Cytology TISSUE SPECIMEN FROM SKIN / Unknown 08/24/2021 08/25/2021 10:19 AM CDT Miscellaneous samples (specimen) TISSUE SPECIMEN FROM SKIN / Unknown 08/24/2021 08/25/2021 10:19 AM CDT us Ta Martin MD LAB - PATHOLOGY/CYTOLOGY ORD ERABLES Final Result DERMATOPATHOLOGY LABORATORY [facility] - Department of Dermatology [facility] [address] [place] [address], [address] [phone] documented in this encounter Visit Diagnoses Not on filedocumented in this encounter
--- OUTSIDE RECORDS SUMMARY | 2024-08-23 14:32 | XMS_ITS | Encounter Summary ---
Author Organization [facility] Address [address] [place] [address] Care Team Providers Care Water Fabricator Operator Name Role Phone Unavailable Primary Care Provider Unavailabl e Encounter Details Date Type Department Care Team (Late st Contact Info) Description 07/13/2022 Lab Requisition [facility] [address] [place] [id number] Ta Martin MD [address] [place] [address] Social History Tobacco Use Types Packs/Day Years Used Date Smoking Tobacco: Never Assessed Comments Unknown Sex and Gender Information Value Date Recorded Sex Assigned at Not on file 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 Gender Identity Not on file Sexual Orientation Not on file documented as of this encounter Plan of Treatment Not on file documented as of this encounter Procedures Procedure Name Priority Date/Time Associated Diagnosis Comments DERMATOPATHOLOGY Routine 07/12/2022 12:0 0 AM CDT documented in this encounter Results * DERMATOPATHOLOGY (07/12/2022 12:00 AM CDT) Case Report Dermatopathology Report Case: [id number] Authorizing Provider: Ta Martin MD Collected: 07/12/2022 12:00 AM Ordering Location: [facility] Received: 07/13/2022 04:18 PM Pathologist: Rosibel Guerrero MD Specimen: Skin, top lateral right shoulder 12:47 PM CDT DERMATOPATHOLOGY LABORATORY Final Diagnosis Specimen A. SKIN, top lateral right shoulder: SEBORRHEIC KERATOSIS, INFLAMED (L82.0) (see microscopic description and comment) 12:47 PM CDT DERMATOPATHOLOGY LABORATORY at 1247 CDT Clinical History R/O SCC vs eczema 3 12:47 PM CDT DERMATOPATHOLOGY LABORATORY Gross Description Specimen A: Received is one formalin filled container labeled with the patient's name and designated top lateral right shoulder. The specimen consists of a shave biopsy measuring [id number] mm. Jar 0. 3 12:47 PM CDT DERMATOPATHOLOGY LABORATORY Microscopic Description Specimen A. SKIN, top lateral right shoulder: There is hyperkeratosis, parakeratosis, papillomatosis, and acanthosis of the epidermis. There is a lymphohistiocytic infiltrate within the papillary dermis that is focally lichenoid. Focal spongiosis is present. COMMENT: A superimposed eczematous process cannot be excluded. 3 12:47 PM CDT DERMATOPATHOLOGY LABORATORY Disclaimer An external and internal positive and negative controls are appropriate for the histochemical, immunohistochemical and immunofluorescence stain(s) in this case (if any), except where stated explicitly. The performance characteristics of the stain(s) cited in this report were developed and its performance characteristic determined by the Dermatopathology Laboratory at [facility], directed by Dr. Dawson Martines. These tests need not be, and therefore are not, approved by the [place] Food and Drug Administration. The tests are used for clinical purposes. Billing Codes Specimen Charges Stain Charges 91415 1 3 12:47 PM CDT DERMATOPATHOLOGY LABORATORY Embedded Images 3 12:47 PM CDT DERMATOPATHOLOGY LABORATORY Pathology/Cytolog y TISSUE SPECIMEN FROM SKIN / Unknown 07/12/2022 07/13/2022 4:18 PM CDT us Ta Martin MD LAB - PATHOLOGY/CYTOLOGY ORD ERABLES Final Result DERMATOPATHOLOGY LABORATORY [facility] - Department of Dermatology [address], [address] [phone] documented in this encounter Visit Diagnoses Not on filedocumented in this encounter
--- OUTSIDE RECORDS SUMMARY | 2024-08-23 14:32 | XMS_ITS | Clinical Summary ---
Author Organization [facility] Address [address] [place] [address] Care Team Providers Care Precision Dancer Name Role Phone Unknown, Notinfile Primary Care Provider Unavail able Allergies No known active allergies Medications dorzolamide-dede oloL (COSOPT) 22.3-6.8 mg/mL ophthalmic solution 2 times daily. Active calcium phosphate/antony onin (CALCIUM-MELATO THERESA) 112-3 mg tablet TAKE DIRECTED. Active levothyroxine (SYNTHROID, LEVOTHROID) 50 mcg tablet 0 06/19/2017 Active vit B-Dd-rdh-lyco-b ilber-hb261 100 unit- 12.5 mg capsule daily. [...] r disease 02/24/2017 Vertebral artery stenosis 02/07/2017 Family History Medical History Relation Name Comments Diabetes Brother 1 Family history of diabetes mellitus - (Added by TW Conv) Hypertension Brother 2 Family history of hypertension - (Added by TW Conv) Hypertension Father Family history of hypertension - (Added by TW Conv) Hypertension Mother Family history of hypertension - (Added by TW Conv) Relation Name Status Comments Brother 1 Brother 2 Father Mother Social History Tobacco Use Types Packs/Day Years Used Date Smoking Tobacco: Never Smokeless Tobacco: Never Tobacco Cessation:Counseling Given: Not Answered Comments Unknown Sex and Gender Information Value Date Recorded Sex Assigned at Not on file 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 Gender Identity Female 09/20/2019 11:25 AM CDT Sexual Orientation Not on file Obstetrics History Last Filed Vital Signs Vital Sign Reading [...] 10/27/2023 10:43 AM CDT Plan of Treatment Health Maintenance Due Date Last Done Comments Depression Screening 1940 Fall Risk Assessment 1940 Osteoporosis Screening-Bone Density Scan 1940 DTaP/Tdap/Td Vaccine (1 - Tdap) 1949 Hepatitis B Screening 1956 Pneumococcal vaccine 65+ (1 of 1 - PCV) 1988 Zoster Vaccine (1 of 2) 1988 Well Visit 65+ 09/22/2003 Influenza Vaccine (Season Ended) 2024 02/06/2018, 01/01/2017, 01/14/2016, Additional history exists Insurance MEDICARE [employer] [place] [employer] [employer] [place] Care Teams Precision Dancer Relationship Specialty Start Date End Date Unknown, Notinfile PCP - General 10/27/23
--- OUTSIDE RECORDS SUMMARY | 2024-08-23 14:32 | XMS_ITS | Encounter Summary ---
Author Organization [facility] Address [address] [place] [address] Phone Care Team Providers Care Flight Operations Manager Name Role Phone Carlos A Linda MD Primary Care Provider +1- [phone] Unknown, Notinfile Primary Care Provider Unavail able Carlos A Linda MD Primary Care Provider +1- [phone] Unknown, Notinfile Primary Care Provider Unavail able Encounter Details Date Type Department Care Team (Late st Contact Info) Description 03/20/2007 Orders Only [facility] Scanning, Provider Social History Tobacco Use Types Packs/Day Years Used Date Smoking Tobacco: Never Assessed Comments Unknown Sex and Gender Information Value Date Recorded Sex Assigned at Not on file 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 Gender Identity Female 09/20/2019 11:25 AM CDT Sexual Orientation Not on file documented as of this encounter Plan of Treatment Not on file documented as of this encounter Procedures Procedure Name Priority Date/Time Associated Diagnosis Comments CARDIOLOGY DOCUMENT SCAN 03/20/2007 documented in this encounter Results * SCAN - CARDIOLOGY (03/20/2007) Anatomical Region Laterality Modality Other us Provider Scanning CV CARDIAC SERVICES PROCEDURES Final Result documented in this encounter Visit Diagnoses Not on filedocumented in this encounter Care Teams Flight Operations Manager Relationship Specialty Start Date End Date Carlos A Linda MD [address] [facility] [address] [place] [address] PCP - General 09/02/16 09/02/16 Unknown, Notinfile PCP - General 09/03/16 09/04/16 Carlos A Linda MD [address] [facility] [address] [place] [address] PCP - General 09/05/16 10/26/23 Unknown, Notinfile PCP - General 10/27/23 documented as of this encounter
--- OUTSIDE RECORDS SUMMARY | 2024-08-23 14:32 | XMS_ITS | Encounter Summary ---
Author Organization [facility] Address [address] [place] [address] Care Team Providers Care Medical Affairs Specialist Name Role Phone Unavailable Primary Care Provider Unavailabl e Encounter Details Date Type Department Care Team (Late st Contact Info) Description 07/26/2023 Lab Requisition [facility] - DermPath Lab [address], [facility] [place] [id number] Aixa Conley MD [address] [place] [address] Social History Tobacco Use Types Packs/Day Years Used Date Smoking Tobacco: Never Assessed Comments Unknown Sex and Gender Information Value Date Recorded Sex Assigned at Not on file 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 Gender Identity Not on file Sexual Orientation Not on file documented as of this encounter Plan of Treatment Not on file documented as of this encounter Procedures Procedure Name Priority Date/Time Associated Diagnosis Comments DERMATOPATHOLOGY Routine 07/26/2023 11:2 6 AM CDT documented in this encounter Results * DERMATOPATHOLOGY (07/26/2023 11:26 AM CDT) Case Report Dermatopathology Report Case: [id number] Authorizing Provider: Aixa Conley MD Collected: 07/26/2023 11:26 AM Ordering Location: [facility] - Received: 07/27/2023 09:53 AM DermPath Lab Pathologist: Ntaasha Guerrero MD Specimens: A) - Skin, left cheek B) - Skin, right arm 10:10 AM CDT DERMATOPATHOLOGY LABORATORY Final Diagnosis Specimen A. SKIN, left cheek: SOLAR LENTIGO (L81.4) (see microscopic description) Specimen B. SKIN, right arm: VACUOLAR INTERFACE DERMATITIS WITH ABUNDANT DERMAL MUCIN (L30.8) (see microscopic description and comment) 10:10 AM T DERMATOPATHOLOGY LABORATORY at 1010 CDT Clinical History A: R/O large cell acanthoma vs MSK vs MM; brown patch. B: favor papular urticaria vs LP; pink papules. 10:10 AM CDT DERMATOPATHOLOGY LABORATORY Gross Description Specimen A: Received is one formalin filled container labeled with the patient's name and designated left cheek. The specimen consists of a shave biopsy measuring 12x5x1 mm. Jar 0. Specimen B: Received is one formalin filled container labeled with the patient's name and designated right arm. The specimen consists of a punch biopsy measuring 3x3x6 mm. Jar 0. 10:10 AM T DERMATOPATHOLOGY LABORATORY Microscopic Description Specimen A. SKIN, left cheek: There is orthokeratosis. There is a slight increase in epidermal thickness with lentiginous buds of hyperpigmented keratinocytes. The number of melanocytes, highlighted by MART-1/Melan-A immunohistochemical staining, is only mildly increased. In the dermis, there is basophilic degeneration of elastic fibers. COMMENT: If this specimen is sampled from a larger lesion, these findings may not be product support representative of the entire lesion. Clinicopathologic correlation is recommended. Specimen B. SKIN, right arm: There are scattered dyskeratotic keratinocytes and vacuolar alteration along the basal cell layer. A mild, perivascular lymphocytic infiltrate is observed in the superficial dermis accompanied by an increase in dermal mucin CD123 does not highlight an increase in plasmacytoid dendritic cells. A colloidal iron tissue stain confirms the presence of abundant dermal mucin. COMMENT: The findings in this specimen are suggestive of connective tissue disease. An interface dermatitis with reactive mucin ws considered in the provided clinical context but is deemed unlikely. Clinical correlation is recommended in distinguishing between cutaneous lupus erythematosus and dermatomyositis, though the latter is slightly favored. 10:10 AM T DERMATOPATHOLOGY LABORATORY Disclaimer An external and internal positive and negative controls are appropriate for the histochemical, immunohistochemical and immunofluorescence stain(s) in this case (if any), except where stated explicitly. The performance characteristics of the stain(s) cited in this report were developed and its performance characteristic determined by the Dermatopathology Laboratory at [facility], directed by Dr. Dawson Martines. These tests need not be, and therefore are not, approved by the [place] Food and Drug Administration. The tests are used for clinical purposes. Billing Codes Specimen Charges Stain Charges 78113 00829 1 1 99589 93054 24335 1 1 1 4 10:10 AM CDT DERMATOPATHOLOGY LABORATORY Embedded Images 4 10:10 AM CDT DERMATOPATHOLOGY LABORATORY Pathology/Cytology TISSUE SPECIMEN FROM SKIN / Unknown 07/26/2023 11:26 AM CDT 07/27/2023 9:53 AM CDT Miscellaneous samples (specimen) TISSUE SPECIMEN FROM SKIN / Unknown 07/26/2023 11:26 AM CDT 07/27/2023 9:53 AM CDT Aixa Conley MD LAB - PATHOLOGY/CYTOLOGY ORD ERABLES Final Result DERMATOPATHOLOGY LABORATORY [facility] - Department of Dermatology [facility] Medicine [address] [place] [address], [address] [phone] documented in this encounter Visit Diagnoses Not on filedocumented in this encounter
--- OUTSIDE RECORDS SUMMARY | 2024-08-23 14:32 | XMS_ITS | Encounter Summary ---
Author Organization [facility] Address [address] [place] [address] Phone Care Team Providers Care Batch Operator Name Role Phone Carlos A Linda MD Primary Care Provider [phone] Unknown, Notinfile Primary Care Provider Unavail able Encounter Details Date Type Department Care Team (Latest Contact Info) Description 06/13/2017 Orders Only [facility] Scanning, Provider Social History Tobacco Use Types Packs/Day Years Used Date Smoking Tobacco: Never Comments Unknown Sex and Gender Information Value Date Recorded Sex Assigned at Not on file 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 Gender Identity Female 09/20/2019 11:25 AM CDT Sexual Orientation Not on file documented as of this encounter Plan of Treatment Not on file documented as of this encounter Procedures Procedure Name Priority Date/Time Associated Diagnosis Comments SCAN - NEUROLOGY 06/13/2017 documented in this encounter Results * SCAN - NEUROLOGY (06/13/2017) Anatomical Region Laterality Modality Other us Provider Scanning Final Result documented in this encounter Visit Diagnoses Not on filedocumented in this encounter Care Teams Batch Operator Relationship Specialty Start Date End Date Carlos A Linda MD [address] [place], [place] [id number] PCP - General 09/05/16 10/26/23 Unknown, Notinfile PCP - General 10/27/23 documented as of this encounter
--- OUTSIDE RECORDS SUMMARY | 2024-08-23 14:32 | XMS_ITS | Encounter Summary ---
Author Organization [facility] Address [address] [place] [address] Phone Care Team Providers Care Regional Airline Pilot Name Role Phone Carlos A Linda MD Primary Care Provider [phone]- [phone] Unknown, Notinfile Primary Care Provider Unavail able Encounter Details Date Type Department Care Team (Late st Contact Info) Description 07/28/2022 Orders Only [facility] Scanning, Provider Social History Tobacco Use Types Packs/Day Years Used Date Smoking Tobacco: Never Smokeless Tobacco: Never Comments Unknown Sex and Gender Information Value Date Recorded Sex Assigned at Not on file 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 Gender Identity Female 09/20/2019 11:25 AM CDT Sexual Orientation Not on file documented as of this encounter Plan of Treatment Not on file documented as of this encounter Procedures Procedure Name Priority Date/Time Associated Diagnosis Comments SCAN - LABS 07/28/2022 documented in this encounter Results * SCAN - LABS (07/28/2022) us Provider Scanning Final Result documented in this encounter Visit Diagnoses Not on filedocumented in this encounter Care Teams Regional Airline Pilot Relationship Specialty Start Date End Date Carlos A Linda MD [address] [place] [address] PCP - General 09/05/16 10/26/23 Unknown, Notinfile PCP - General 10/27/23 documented as of this encounter
--- OUTSIDE RECORDS SUMMARY | 2024-08-23 14:33 | XMS_ITS | Data Portability ---
Author Organization [facility] [employer] [facility], Main Office Address [address] [place] [address] Care Team Providers Care Carpenter Helper Maintenance Name Role Phone GOLD SHAHIDA Primary Care Provider [phone] SHAHIDA MALCOLM Referring Provider [phone] MOIRA ROBLEDO Primary Care Provider [phone] Assessment Encounter Date Assessment Date Assessment LastModified by Organization Details LastModified Time 06/23/2022 06/23/2022 This note is dictated and transcribed by [employer]. [employer] variances may occur. Despite proofreading, typographical errors may occur. Not available 06/30/2022 13:48:13 08/14/2023 08/14/2023 This note is dictated and transcribed by [employer]. [employer] variances may occur. Despite proofreading, typographical errors may occur. Occasional wrong-word or 'gklnu-n-fvkz' substitutions may have occurred due to the inherent limitations of voice recording. Read the chart carefully and recognize, using context, where substitutions have occurred. Not available 08/14/2023 15:39:37 01/08/2024 01/08/2024 This note is dictated and transcribed by [employer]. [employer] variances may occur. Despite proofreading, typographical errors may occur. Occasional wrong-word or 'cyzfb-x-tany' substitutions may have occurred due to the inherent limitations of voice recording. Read the chart carefully and recognize, using context, where substitutions have occurred. Not available 01/08/2024 17:29:56 01/15/2024 01/15/2024 This note is dictated and transcribed by [employer]. [employer] variances may occur. Despite proofreading, typographical errors may occur. Occasional wrong-word or 'jonmn-n-xtqo' substitutions may have occurred due to the inherent limitations of voice recording. Read the chart carefully and recognize, using context, where substitutions have occurred. [email or web address] Not available 01/15/2024 14:55:28 Plan of Treatment Reminders Order Date Submit Date Provider Last Modified By Organization Details Last Modified Time Details Appointments None recorded. Lab None recorded. Referral None recorded. Procedures None recorded. Surgeries None recorded. Imaging XR, foot, 3 or more view 2022 023 [email or web address] [facility] Jeffrey Colvin, [address], [place], [address], 13:51:07 Medication Orders doxycycline hyclate 100 mg tablet 2023 [facility] [address], [address], [place], [address], 17:30:00 betamethaso ne dipropionat e 0.05 % topical cream 2023 [facility] [address], [address], [place], [address], 4 15:40:24 clotrimazol e 1 % topical cream 2023 024 [facility] [address], [address], [place], [address], 4 15:40:23 Patient TargetsNo targets recorded. Patient InstructionsNo instructions recorded. Reason for Referral None Reported. Results Created Date Observation Date Name Description Value Unit Range Abnormal Flag Note LastModifiedBy Organization Detail LastModifiedTime 07/01/19 23 XR, foot, 3 or more view No observ ation record ed. [email or web address] [facility] Jeffrey Colvin [address], [place], [address], 06/30/2022 13:51:02 Result Notes None recorded. Problems Name Problem SNOMED Code Status Onset Date Resolution Date Notes Provider Name and Address Organization Details Recorded Time Enlarged uterus 912571493 Active Not Available [facility] 3 08:09:50 Lateral epicondyli tis 818331244 Active Not Available [facility] 3 08:09:50 Shoulder joint pain 343959033 Active Not Available [facility] 3 08:09:50 Disorder of bursa of shoulder region 06902243 Active Not Available [facility] 3 08:09:50 Back problem 870578959 Active 2022 Shantel patel, [facility] 3 17:08:20 Bowel problem 707371588 Active 2022 Shantel patel, [facility] 3 17:08:48 Disorder of eye 034815409 Active 2022 Shantel patel, [facility] 3 17:08:58 Ear problem 651713013 Active 2022 Shantel patel, [facility] 3 17:09:09 Hyperchole sterolemia 95308458 Active 2022 Shantel patel, [facility] 3 17:09:23 Cerebrovas cular accident 324504079 Active 2022 Shantel patel, [facility] 3 17:09:35 Pain of toe of left foot 7479939828774 08 Active 2022 Arnav Jimenez DPM [address], [address], [place], [address] , [facility] 3 13:50:01 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 347670558 Active 2022 Arnav Jimenez DPM [address], [address], [place], [address] , [facility] 3 13:50:23 Tinea pedis 7057905 Active 2023 Arnav Jimenez DPM [address], [address], [place], [address] , [facility] [employer] [facility] 4 15:39:06 Pruritic rash 72387054 Active 2023 Arnav Jimenez DPM [address], [facility] [address], [place], [address] , [facility] [employer] [facility] 4 15:39:28 Cellulitis of toe of left foot Active 2023 Arnav Jimenez DPM [address], [address] [address], [place], [address] , [facility] [employer] [facility] [employer] [facility] 4 17:29:00 Blister of foot with infection 93038167 Active 2023 Arnav Jimenez DPM [address], [address] [place] [address], [place], [address] , [facility] [employer] [facility] 4 17:29:24 Notes:BLOOD CLOTS Problem Notes None recorded. Procedures Surgical History Date Name Laterality Status Provider Name and Address Organization Details Recorded Time Most Recent Mammogram completed Not Available [facility] 05/11/2022 08:06:29 Imaging Results None recorded. Procedure Notes None recorded. Medical Equipment None Reported. Medications Name Sig Start Date Stop Date Status Note LastModified by Organization Details LastModified Time losartan 50 mg tablet TAKE 1 TABLET BY MOUTH ONCE DAILY 08/13 completed Not Available Not Available Not Available atorvastati n 40 mg tablet 02/06 completed Not Available Not Available Not Available carvedilol 6.25 mg tablet TAKE 1 TABLET BY MOUTH EVERY 12 HOURS WITH FOOD (STOP LOSARTAN) active Not Available Not Available No t Available cetirizine 10 mg tablet TAKE 1 TABLET BY MOUTH ONCE DAILY 08/13 completed Not Available Not Available Not Available azithromyci n 250 mg tablet active Not Available Not Available Not Available felodipine ER 5 mg tablet,exte nded release 24 hr 02/06 completed Not Available Not Available Not Available clopidogrel 75 mg tablet 02/06 completed Not Available Not Available Not Available triamcinolo ne acetonide 0.1 % topical cream APPLY TOPICALLY TO ITCHY AREAS TWICE DAILY active Not Available Not Available No t Available levothyroxi ne 25 mcg tablet TAKE 1 TABLET BY MOUTH ONCE DAILY active Not Available Not Available No t Available benzonatate 100 mg capsule active Not Available Not Available Not Available levothyroxi ne 50 mcg tablet TAKE 1 TABLET BY MOUTH ONCE DAILY 01/07 completed Not Available Not Available Not Available simvastatin 20 mg tablet 02/06 completed Not Available Not Available Not Available betamethaso ne dipropionat e 0.05 % topical cream APPLY A THIN LAYER TO THE AFFECTED AREA(S) BY TOPICAL ROUTE ONCE DAILY 2023 active Not Available Not Available Not Avai lable balsalazide 750 mg capsule TAKE 3 CAPSULES BY MOUTH THREE TIMES DAILY 01/07 completed Not Available Not Available Not Available omeprazole 20 mg capsule,del ayed release TAKE 1 CAPSULE BY MOUTH ONCE DAILY AROUND SUPPER TIME active Not Available Not Available No t Available felodipine ER 10 mg tablet,exte nded release 24 hr TAKE 1 TABLET BY MOUTH ONCE DAILY active Not Available Not Available No t Available dorzolamide 22.3 mg-timolol 6.8 mg/mL eye drops INSTILL 1 DROP INTO RIGHT EYE TWICE DAILY DIRECTED active Not Available Not Available No t Available halobetasol propionate 0.05 % topical cream APPLY CREAM TOPICALLY TO AFFECTED AREA TWICE DAILY 08/13 completed Not Available Not Available Not Available lisinopril 5 mg tablet 02/06 completed Not Available Not Available Not Available budesonide DR - ER 3 mg capsule,del ayed,extend ed release active Not Available Not Available N ot Available methylpredn isolone 4 mg tablets in a dose pack TAKE BY MOUTH DIRECTED ON INSIDE OF PACKAGE 02/11 completed Not Available Not Available Not Available oxybutynin chloride 5 mg tablet 02/06 completed Not Available Not Available Not Available fluticasone propionate 50 mcg/actuati on nasal spray,suspe nsion USE 2 SPRAY(S) IN EACH NOSTRIL ONCE DAILY AIM BACK/UP/O UT 08/13 completed Not Available Not Available Not Available clotrimazol e 1 % topical cream APPLY CREAM TOPICALLY TO AFFECTED AND SURROUNDI NG AREAS OF SKIN TWICE DAILY IN THE MORNING AND IN THE EVENING active Not Available Not Available No t Available doxycycline hyclate 100 mg tablet TAKE 1 TABLET BY MOUTH TWICE DAILY DIRECTED FOR 10 DAYS active Not Available Not Available No t Available rosuvastati n 20 mg tablet 02/06 completed Not Available Not Available Not Available rosuvastati n 40 mg tablet TAKE 1 TABLET BY MOUTH ONCE DAILY active Not Available Not Available No t Available trospium 20 mg tablet TAKE 1 TABLET BY MOUTH TWICE DAILY active Not Available Not Available No t Available melatonin 08/13 completed Not Available Not Available Not Available aspirin 08/13 completed Not Available Not Available Not Available calcium active Not Available Not Avail able Not Available folic acid active Not Available Not Av ailable Not Available Glucosamine active Not Available Not A vailable Not Available Cosopt active Not Available Not Availa ble Not Available C-Time active Not Available Not Availa ble Not Available Hair Vitamins active Not Available Not Available Not Available multivitami n active Not Available Not Available Not Available lutein active Not Available Not Availa ble Not Available Sea Kelp active Not Available Not Avai lable Not Available Travatan Z 0.004 % eye drops INSTILL 1 DROP INTO EACH EYE NIGHTLY DIRECTED active Not Available Not Available No t Available D3 DOTS 01/07 completed Not Available Not Available Not Available Fluvirin 2322-0195 45 mcg (15 mcg x 3)/0.5 mL intramuscul ar suspension INJECT 0.5 ML INTRAMUSC ULARLY DIRECTED. active Not Available Not Available No t Available Fluzone High-Dose 3414-2793 (PF) 180 mcg/0.5 mL intramuscul ar syringe ADM 0.5ML IM UTD 08/13 completed Not Available Not Available Not Available Fluzone High-Dose Quad (PF) 240 mcg/0.7 mL IM syringe ADM 0.7ML IM UTD 08/13 completed Not Available Not Available Not Available Vitals Date Recorded Heart rate Respiratory rate Oxygen saturation Oxygen saturation in Arterial blood by Pulse oximetry Body height Body mass index (BMI) Body weight Systolic blood pressure Diastolic blood pressure Provider Name and Address Organization Details Last Updated DateTime 3 68 /min 14 /min 98 % 98 % 160.02 cm 21.8 kg/m2 07973.8 6 g 179 mm[Hg] 102 mm[Hg] Kathy [facility]EL[facility]CO [facility] [employer] 3 16:06:16 Date Recorded Body height Body mass index (BMI) Body weight Heart rate Respiratory rate Oxygen saturation Oxygen saturation in Arterial blood by Pulse oximetry Systolic blood pressure Diastolic blood pressure Provider Name and Address Organization Details Last Updated DateTime 4 160.02 cm 21.8 kg/m2 69639.8 6 g 63 /min 14 /min 98 % 98 % 157 mm[Hg] 87 mm[Hg] Kathy VELAZCO [facility] [employer] [facility] 4 15:13:10 Date Recorded Body height Body mass index (BMI) Body weight Heart rate Respiratory rate Oxygen saturation Oxygen saturation in Arterial blood by Pulse oximetry Systolic blood pressure Diastolic blood pressure Provider Name and Address Organization Details Last Updated DateTime 4 160.02 cm 21.8 kg/m2 47721.8 6 g 57 /min 14 /min 98 % 98 % 180 mm[Hg] 89 mm[Hg] Kathy Corona [facility] [employer] [facility] 4 17:08:06 Date Recorded Body height Body mass index (BMI) Body weight Heart rate Respiratory rate Oxygen saturation Oxygen saturation in Arterial blood by Pulse oximetry Systolic blood pressure Diastolic blood pressure Provider Name and Address Organization Details Last Updated DateTime 4 160.02 cm 21.8 kg/m2 03047.8 6 g 67 /min 14 /min 98 % 98 % 150 mm[Hg] 84 mm[Hg] Kathy Corona [facility] [employer] [facility] 4 14:09:14 Social History None recorded. Functional Status Question Answer Note LastModified by Organizat ion Details LastModified Time What is your level of alcohol consumption? 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[id number] Information not available 05/11/2022 Mental Status None recorded. Family History Relationship Description Onset Age of this Age Resolved Age Notes LastModified by Organization Details LastModified Time Unspecified Relation Diabetes mellitus [email or web address] Not available 2022 17:10:00 Unspecified Relation Cerebrovascu lar accident [email or web address] Not available 17:10:07 Unspecified Relation Arthritis [email or web address] Not available 023 17:10:14 Unspecified Relation Hypertensive disorder [email or web address] Not available 2022 17:10:26 Medical History Condition Response BOWEL PROBLEMS Y BACK / NECK PROBLEMS Y BLOOD CLOTS Y STROKE/TIA Y HIGH CHOLESTEROL / HYPERLIPIDEMIA Y Gynecological History Statement/Question Response Most Recent Mammogram 05/22/2020 Obstetrics History GPAL:G 0 P 0 0 0 0 Past Encounters Encounter ID Performer Location Encounter Start Date Encounter Closed Date Diagnosis/Indication Diagnosis SNOMED-CT Code Diagnosis ICD10 Code Diagnosis Note [id number] Arnav Jimenez DPM [facility] [place] [address] [place] [address] 06/23/2022 15:56:51 06/30/2022 18:29:17 Pain of toe of left foot 9633209973 81366 M79.675 options reviewed with the patientCon tinue supportive shoe gearRecomm end silicone toe capFollow- up as needed Flexion co ntracture of toe interphalangeal joint 447680036 M21.279 left great toe- interphala ngeal jointEduca whitney on treatment options patient defer surgeryFol low-up as needed [id number] Arnav Jimenez DPM [facility] [place] [address] [place] [address] 08/14/2023 14:57:26 09/04/2023 10:01:23 Tinea pedis 7167684 B35.3 right footdaily foot hygieneedu cated on conditionf ollow-up 1 week if not resolved Pruritic rash 33495314 L 28.2 right foot [id number] Arnav Jimenez DPM [facility] [place] [address] [place] [address] 01/08/2024 16:59:24 03/07/2024 14:49:00 Tinea pedis 6718569 B35.3 right foot - resolved Cellulitis of toe of left foot 5310319696 L03.032 3rd toemonitor for worsening signs of infection at present seek medical attention immediatel yFollow-up in 1 week Blister of foot with infection 76908585 S90.822A 3rd toedaily wound careoffloa dingfollow -up one-week [id number] Arnav Jimenez DPM [facility] [place] [address] [place] [address] 01/15/2024 13:58:46 03/07/2024 15:15:00 Cellulitis of toe of left foot 2800080197 L03.032 resolvedfi jefe antibiotic sfollow-up as needed Health Concerns Section Related Observation LastModified by Organization Detai ls LastModified Time None Recorded Concern Status LastModified by Organization Details LastModified Time None Recorded Advance Directives Directive None Recorded Payers Insurance Date Sequence Insurance Name Policy Number Policy Mix Covered Member ID Mix Member ID Guarantor Name 01/12/2024 1 [place] Evelyn Gee [id number] Evelyn Gee 03/07/2024 2 [facility] (MEDICARE SUPPLEMENT) PLAN F Evelyn Gee [id number] Evelyn Gee 01/12/2024 [employer] (MEDICARE DME REGION B) Evelyn Gee [id number] Evelyn Gee 01/08/2024 [employer] ASSIGNED (MEDICARE DME REGION B) Evelyn Gee [id number] Evelyn Gee Notes Date Note Type Note Provider Name and Address Organization Details Recorded Time 06/23/2022 text/html . Patient is a 81-year-old female who presents the office with complaints pain to her left great toe. Patient starts this pain started on to . patient states that she likes to do a lot of walking and states that her toe causes lot of discomfort when she walks for long distances. Patient states that rubbing causes more pain to the toe. Patient states she can comfortably walk 2-4 blocks. Patient states the pain is 4/10 and describes it as aching in nature. Patient denies any other pedal complaints. Arnav Jimenez, DPFranky [address] [facility], [facility] [address], [place], [address], [facility] [employer] 06/30/2022 13:53:01 08/14/2023 text/html . Patient is a 82-year-old female who presents with a rash that itches to the dorsal right foot. Patient states it has started around her toes spread to the rest of her toes and then resolved and has moved up to the dorsal part of the foot. Patient states that it has not improved and has been a couple days. Patient denies any fever, chills, nausea or vomiting. Patient denies any treatment for this. Arnav Jimenez DPM [address], [facility] [address], [place], [address], [employer] [facility] [employer] [facility] 09/04/2023 09:16:20 01/08/2024 text/html . Patient is an 83-year-old female who returns to the office with complaints of possible infection to the left foot. Patient has been utilizing the antifungal and steroid cream to the right foot she states that the rash has resolved to the right foot but now she has developed a blister and swelling and redness of the left 3rd toe she states she has been applying the ointment to the left foot but it has not improved. Patient denies any other complaints. Arnav Jimenez DPM [address], [address], [place], [address], [employer] 01/13/2024 13:20:28 01/15/2024 text/html . Patient is an 83-year-old female she returns the office for follow-up on left foot cellulitis and swelling of the toe the swelling of the toe is resolved as well as the redness. Patient states she has 2 days left of the antibiotics I told her to continue and finish these antibiotics. Patient denies any new complaints. Patient denies any fever, chills, nausea vomiting. Arnav Jimenez DPM [address], [facility] [address], [place], [address], [employer] 01/15/2024 14:55:47 OBGyn Episode No OBEpisode recorded.
--- OUTSIDE RECORDS SUMMARY | 2024-08-23 14:33 | XMS_ITS | Encounter Summary ---
Author Organization [facility] Address [address] [place] [address] Phone Care Team Providers Care Rope Making Machine Operator Name Role Phone Carlos A Linda MD Primary Care Provider [phone] Unknown, Notinfile Primary Care Provider Unavail able Encounter Details Date Type Department Care Team (Late st Contact Info) Description 07/27/2021 Orders Only [facility] Scanning, Provider Social History Tobacco Use Types Packs/Day Years Used Date Smoking Tobacco: Never Smokeless Tobacco: Never Comments Unknown Sex and Gender Information Value Date Recorded Sex Assigned at Not on file 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
== END 2024-08-23 14:23 | disposition home or self-care (01) ==
PROVIDERS: PCP Internal Medicine; Visit Provider Psychiatry & Neurology Neurology
DX: Z86.73 Personal history of transient ischemic attack (TIA), and cerebral infarction without residual deficits (principal); I65.02 Occlusion and stenosis of left vertebral artery; I10 Essential (primary) hypertension; I65.23 Occlusion and stenosis of bilateral carotid arteries
CPT/HCPCS: 93880

== ENCOUNTER 2024-12-07 13:40 | Observation (INO) | payer MEDICARE, OTHER, SELFPAY ==
--- OUTSIDE RECORDS SUMMARY | 2005-03-01 19:00 | XMS_ITS | Continuity of Care Document ---
Author Organization [facility] Address [id number] [place] [address] [place] [address] Phone Care Team Providers Care Artist Agent Name Role Phone [facility] Unavailable Unavail able Norma Chambers Unavailable Unavailable Advance Directives Directive Yes / No Effective Date File Name No Information Encounters Encounter Description Practice Location Reason(s) For Visit Diagnoses Date Provider Providers Copied on Encounter [facility], [id number] [place] [address] [address], [place], [place], [id number], [place] tel:[phone] [facility] No Information Feb- 1200 5 [facility] [address] [facility], [address], [place], [place], [id number] , [place]. tel:[phone] Consulting Provider: Norma Chambers, [address] [place] [address], [place], [address]. tel:[phone] Family History Family Member Type Diagnosis Age At Onset No Information Payers Payer name Insurance type Covered alliance party ID Authoriza tion(s) No Information Social History Type Description Quantity Date Captured Comments Sex Female Smoking Status No Information Chief Complaint And Reason For Visit No Information Reason For Referral Reason For Referral No Information History Of Present Illness Encounter Date Complaint History Of Prese nt Illness No Information Functional Status Date Functional Assessmen t No Information Instructions Date Instruction Additional Infor mation No Information Assessments Type Assessment Date No Information Patient Care Teams Name Effective Dates (start - stop) Status Members No Information
[2024-12-07] VITALS (12 sets, daily range): BP systolic 147–207; BP diastolic 57–92; PULSE 59–72; RESP 18–21; TEMP 36.1–36.7; O2SAT 96–99; BMI 21.0
--- NOTE | ~2024-12-07 | MR_ITS ---
EXAMINATION: MR brain/brain stem wo/w con COMPARISON: Comparison CT 12/07/2024. HISTORY: unknown cause of dizziness, CT brain negative TECHNIQUE: Multiplanar multisequence images obtained of the brain without and with intravenous contrast, Prohance 17cc injected IV. FINDINGS: Cerebellar tonsils are normal in location. No abnormal signal in the clivus on the visualized cervical spine. Pituitary does not appear enlarged No acute infarct or hemorrhage. Large remote appearing left occipital infarct with bilateral benign-appearing basal ganglia lacunar infarcts Scattered areas of abnormal signal within the subcortical white matter probably representing areas of chronic periventricular ischemic change No hydrocephalus. No midline shift. No extra-axial fluid collections. Appropriate flow voids are maintained Mastoid air cells, sinuses and orbits are unremarkable No abnormal enhancement IMPRESSION: No acute infarct or hemorrhage Reviewed, dictated and finalized at location P.
--- NOTE | ~2024-12-07 | XR_ITS ---
EXAMINATION: XR chest 2V, 12/07/2024 14:15 CDT HISTORY: syncope COMPARISON: No comparisons available. Technique: 2 views obtained. Findings: The lungs are clear, no effusion. No pneumothorax. Mild cardiomegaly Mediastinal and hilar contours are within normal limits. Bony thorax no acute abnormality. Impression: No acute cardiopulmonary abnormality. Reviewed, dictated and finalized at location P. Impression: No acute cardiopulmonary abnormality.
--- NOTE | ~2024-12-07 | CT_ITS ---
EXAMINATION: CT brain wo jarad, 12/07/2024 14:45 CDT HISTORY: near syncopal episode COMPARISON: No comparisons available. Technique: Axial images obtained of the brain without contrast. One or more of the following dose reduction techniques were used: automated exposure control, adjustment of the mA and/or kV according to patient size, use of iterative reconstruction technique. Findings: Remote left basal ganglia lacunar infarcts. Remote left occipital infarct. No acute infarct or hemorrhage. No midline shift or mass effect. No extra-axial fluid collections. Mastoid air cells unremarkable. Sinuses and orbits unremarkable. No acute fracture. No significant facial or scalp soft tissue swelling evident. No radiopaque foreign body is seen. Impression: 1.No acute intracranial abnormality. Reviewed, dictated and finalized at location P. Impression: 1.No acute intracranial abnormality.
--- NOTE | 2024-12-07 13:45 | ECG_ITS ---
Test Date: 2024-12-07 13:50:51 Measurements Intervals [place] Rate: 55 P: 71 KS: 210 QRS: -41 QRSD: 91 T: 32 QT: 449 QTc: 432 Interpretive Statements SINUS BRADYCARDIA WITH FIRST DEGREE AV BLOCK LEFTWARD AXIS POSSIBLE LEFT VENTRICULAR HYPERTROPHY Electronically Signed On 12-08-2024 20:42:34 CDT by Urbano Merchant D.O
[2024-12-07 14:01] LABS: Hematocrit 37.2 % (37.0-47.0); Hemoglobin 11.8 g/dL (12.0-15.0); Immature Granulocyte Percent A 0.2 % (0-0.5); Lymphocytes Absolute Auto 1.72 K/mm3 (0.9-3.2); Mean Corpuscular HGB Conc 31.7 g/dl (32-36); Mean Corpuscular Hemoglobin 28.3 pg (26-34); Mean Corpuscular Volume 89.2 fl (80-100); Nucleated Red Blood Cells Absolute Auto 0.000 K/mm3 (0.0-0.012); Nucleated Red Blood Cells Perc 0.0 % (0.0-0.2); Platelet Count Result 144 k/mm3 (150-375); Red Blood Count 4.17 M/mm3 (4.2-5.4); White Blood Count 6.0 K/mm3 (4.5-10.0)
[2024-12-07 14:12] LABS: Alanine Aminotransferase 22 U/L (6-35); Albumin Level 4.2 g/dL (3.5-5.1); Alkaline Phosphatase 66 U/L (38-126); Anion Gap 9 mmol/L (4-12); Aspartate Amino Transferase 38 U/L (14-36); Bilirubin,Total 1.6 mg/dL (0.2-1.3); Blood Urea Nitrogen 29 mg/dL (7-17); Calcium 9.1 mg/dL (8.4-10.2); Carbon Dioxide 23 mmol/L (22-30); Chloride 104 mmol/L (98-107); Estimated CRCL calculation 21 ml/min; Estimated Glomerular Filt Rate 35; Glucose 133 mg/dL (65-110); Potassium 4.0 mmol/L (3.4-5.0); Sodium 136 mmol/L (137-145); Total Protein 6.9 g/dL (6.3-8.2)
--- OUTSIDE RECORDS SUMMARY | 2024-12-07 14:18 | XMS_ITS | Clinical Summary ---
Author Organization [facility] Address [address] [place] [address] Care Team Providers Care Awning Craftsman Name Role Phone Unknown, Notinfile Primary Care Provider Unavail able Allergies No known active allergies Medications dorzolamide-dede oloL (COSOPT) 22.3-6.8 mg/mL ophthalmic solution 2 times daily. Active calcium phosphate/antony onin (CALCIUM-MELATO THERESA) 112-3 mg tablet TAKE DIRECTED. Active levothyroxine (SYNTHROID, LEVOTHROID) 50 mcg tablet 0 06/19/2017 Active vit G-Bw-ifo-lyco-b ilber-hb261 100 unit- 12.5 mg capsule daily. 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
--- OUTSIDE RECORDS SUMMARY | 2024-12-07 14:18 | XMS_ITS | Encounter Summary ---
Author Organization [facility] Address [address] [place] [address] Care Team Providers Care Machinist Supervisor Outside Name Role Phone Unavailable Primary Care Provider Unavailabl e Encounter Details Date Type Department Care Team (Late st Contact Info) Description 07/13/2022 Lab Requisition [facility] D[facility] Lab [address] [place] [address] Ta Martin MD [address] [place] [address] Social History Tobacco Use Types Packs/Day Years Used Date Smoking Tobacco: Never Assessed Comments Unknown Sex and Gender Information Value Date Recorded Sex Assigned at Not on file 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 Gender Identity Not on file Sexual Orientation Not on file documented as of this encounter Plan of Treatment Not on file documented as of this encounter Procedures Procedure Name Priority Date/Time Associated Diagnosis Comments DERMATOPATHOLOGY Routine 07/12/2022 12:0 0 AM CDT documented in this encounter Results * DERMATOPATHOLOGY (07/12/2022 12:00 AM CDT) Case Report Dermatopathology Report Case: [id number] Authorizing Provider: Ta Martin MD Collected: 07/12/2022 12:00 AM Ordering Location: [facility] Received: 07/13/2022 04:18 PM Pathologist: [...] specimen consists of a shave biopsy measuring 14a46i0 mm. Jar 0. 3 12:47 PM CDT [...] characteristic determined by the Dermatopathology Laboratory at [facility], directed by Dr. Dawson Martines. These tests need not be, and therefore are not, approved by the [place] Food and Drug Administration. The tests are used for clinical purposes. Billing Codes Specimen Charges Stain Charges 68319 1 3 12:47 PM CDT DERMATOPATHOLOGY LABORATORY Embedded Images 3 12:47 PM CDT DERMATOPATHOLOGY LABORATORY Pathology/Cytolog y TISSUE SPECIMEN FROM SKIN / Unknown 07/12/2022 07/13/2022 4:18 PM CDT us Ta Martin MD LAB - PATHOLOGY/CYTOLOGY ORD ERABLES Final Result DERMATOPATHOLOGY LABORATORY [facility] - Department of Dermatology [address], [address] [phone] documented in this encounter Visit Diagnoses Not on filedocumented in this encounter
--- OUTSIDE RECORDS SUMMARY | 2024-12-07 14:18 | XMS_ITS | Encounter Summary ---
Author Organization [facility] Address [address] [place] [address] Phone Care Team Providers Care Helmet Binder Name Role Phone Calros A Linda MD Primary Care Provider +1- [phone] Unknown, Notinfile Primary Care Provider Unavail able Carlos A Linda MD Primary Care Provider +1- [phone] Unknown, Notinfile Primary Care Provider Unavail able Encounter Details Date Type Department Care Team (Late st Contact Info) Description 03/20/2007 Orders Only [facility] Scanning, Provider Social History Tobacco Use Types Packs/Day Years Used Date Smoking Tobacco: Never Assessed Comments Unknown Sex and Gender Information Value Date Recorded Sex Assigned at Not on file 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
--- OUTSIDE RECORDS SUMMARY | 2024-12-07 14:18 | XMS_ITS | Encounter Summary ---
Author Organization [facility] Address [address] [place] [address] Phone Care Team Providers Care Research Biostatistician Name Role Phone Carlos A Linda MD Primary Care Provider +1- [phone] Unknown, Notinfile Primary Care Provider Unavail able Encounter Details Date Type Department Care Team (Late st Contact Info) Description 07/27/2021 Orders Only [facility] Scanning, Provider Social History Tobacco Use Types Packs/Day Years Used Date Smoking Tobacco: Never Smokeless Tobacco: Never Comments Unknown Sex and Gender Information Value Date Recorded Sex Assigned at Not on file 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
--- OUTSIDE RECORDS SUMMARY | 2024-12-07 14:18 | XMS_ITS | Encounter Summary ---
Author Organization [facility] Address [address] [place] [address] Phone Care Team Providers Care Special Forces Communications Sergeant Name Role Phone Carlos A Linda MD Primary Care Provider +1- [phone] Unknown, Notinfile Primary Care Provider Unavail able Encounter Details Date Type Department Care Team (Latest Contact Info) Description 06/13/2017 Orders Only [facility] Scanning, Provider Social History Tobacco Use Types Packs/Day Years Used Date Smoking Tobacco: Never Comments Unknown Sex and Gender Information Value Date Recorded Sex Assigned at Not on file 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
--- OUTSIDE RECORDS SUMMARY | 2024-12-07 14:18 | XMS_ITS | Encounter Summary ---
Author Organization [facility] Address [address] [place] [address] Phone Care Team Providers Care Anesthesiology Faculty Name Role Phone Carlos A Linda MD Primary Care Provider +1- [phone] Unknown, Notinfile Primary Care Provider Unavail able Encounter Details Date Type Department Care Team (Late st Contact Info) Description 07/28/2022 Orders Only [facility] Scanning, Provider Social History Tobacco Use Types Packs/Day Years Used Date Smoking Tobacco: Never Smokeless Tobacco: Never Comments Unknown Sex and Gender Information Value Date Recorded Sex Assigned at Not on file Legal Sex Female 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
--- OUTSIDE RECORDS SUMMARY | 2024-12-07 14:18 | XMS_ITS | Clinical Summary ---
Author Organization [facility] Address [address] [place] [address] Care Team Providers Care Slag Mixer Name Role Phone Unavailable Primary Care Provider Unavailabl e Social History Tobacco Use Types Packs/Day Years Used Date Smoking Tobacco: Never Assessed Comments Unknown Sex and Gender Information Value Date Recorded Sex Assigned at Not on file Legal Sex Female 8:32 PM CDT Gender Identity Not on file Sexual Orientation Not on file Plan of Treatment Health Maintenance Due Date Last Done Comments DTaP, Tdap and Td Vaccines ( 1 - Tdap) 1957 Pneumococcal Vaccine: 50+ Ye ars (1 of 1 - PCV) 1988 Zoster Vaccines (1 of 2) 1988 RSV Immunization or 60+ Years (1 - 1-dose 75+ series) 2013 COVID-19 Vaccine (1 - 2023-2 5 season) 2024 Meningococcal B Vaccine Aged Out No l onger eligible based on patient's age to complete this topic Meningococcal Vaccine Aged Out No balta rogelio eligible based on patient's age to complete this topic RSV Immunizations Under 20 Months Aged Out No longer eligible based on patient's age to complete this topic
--- OUTSIDE RECORDS SUMMARY | 2024-12-07 14:18 | XMS_ITS | Encounter Summary ---
Author Organization [facility] Address [address] [facility] [place] [address] Care Team Providers Care Button Riveter Name Role Phone Unavailable Primary Care Provider Unavailabl e Encounter Details Date Type Department Care Team (Late st Contact Info) Description 08/25/2021 Lab Requisition [facility] DermPath Lab [address] [place] [address] Ta Martin MD [address] [place] [address] Social History Tobacco Use Types Packs/Day Years Used Date Smoking Tobacco: Never Assessed Comments Unknown Sex and Gender Information Value Date Recorded Sex Assigned at Not on file 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 Gender Identity Not on file Sexual Orientation Not on file documented as of this encounter Plan of Treatment Not on file documented as of this encounter Procedures Procedure Name Priority Date/Time Associated Diagnosis Comments DERMATOPATHOLOGY Routine 08/24/2021 12:0 0 AM CDT documented in this encounter Results * DERMATOPATHOLOGY (08/24/2021 12:00 AM CDT) Case Report Dermatopathology Report Case: [id number] Authorizing Provider: Ta Martin MD Collected: 08/24/2021 12:00 AM Ordering Location: [facility] Derm[facility] Lab Received: 08/25/2021 10:19 AM Pathologist: [...] specimen consists of a shave biopsy measuring 1t0d0jd. Jar 0. Specimen B: Received is one formalin filled container labeled with the patient's name and designated left deltoid. The specimen consists of a shave biopsy measuring 6o8q4oo. Jar 0. 2 12:54 PM T DERMATOPATHOLOGY [...] determined by the Dermatopathology Laboratory at [facility], directed by Dr. Dawson Martines. These tests need not be, and therefore are not, approved by the [place] Food and Drug Administration. The tests are used for clinical purposes. Billing Codes Specimen Charges Stain Charges 91056 74328 1 1 84944 18796 1 1 2 12:54 PM CDT DERMATOPATHOLOGY LABORATORY Embedded Images 12:54 PM CDT DERMATOPATHOLOGY LABORATORY Pathology/Cytology TISSUE SPECIMEN FROM SKIN / Unknown 08/24/2021 08/25/2021 10:19 AM CDT Miscellaneous samples (specimen) TISSUE SPECIMEN FROM SKIN / Unknown 08/24/2021 08/25/2021 10:19 AM CDT us Ta Martin MD LAB - PATHOLOGY/CYTOLOGY ORD ERABLES Final Result DERMATOPATHOLOGY LABORATORY [facility] - Department of Dermatology [facility] [address] [place] [address], [address] [phone] documented in this encounter Visit Diagnoses Not on filedocumented in this encounter
--- OUTSIDE RECORDS SUMMARY | 2024-12-07 14:18 | XMS_ITS | Data Portability ---
Author Organization [facility], Main Office Address [address] [place] [address] Care Team Providers Care Air Conditioning Manager Name Role Phone SHAHIDA MALCOLM Primary Care Provider SHAHIDA MALCOLM Referring Provider [phone] MOIRA ROBLEDO Primary Care Provider [phone] Assessment Encounter Date Assessment Date Assessment LastModified by Organization Details LastModified Time 06/23/2022 06/23/2022 This note is dictated and transcribed by [employer]. Cement Handler variances may occur. Despite proofreading, typographical errors may occur. Not available 06/30/2022 13:48:13 08/14/2023 08/14/2023 This note is dictated and transcribed by [employer]. Cement Handler variances may occur. Despite proofreading, typographical errors may occur. Occasional wrong-word or 'iznqr-c-kcrt' substitutions may have occurred due to the inherent limitations of voice recording. Read the chart carefully and recognize, using context, where substitutions have occurred. Not available 08/14/2023 15:39:37 01/08/2024 01/08/2024 This note is dictated and transcribed by [employer]. Cement Handler variances may occur. Despite proofreading, typographical errors may occur. Occasional wrong-word or 'pmggm-i-vdnc' substitutions may have occurred due to the inherent limitations of voice recording. Read the chart carefully and recognize, using context, where substitutions have occurred. Not available 01/08/2024 17:29:56 01/15/2024 01/15/2024 This note is dictated and transcribed by [employer]. Cement Handler variances may occur. Despite proofreading, typographical errors may occur. Occasional wrong-word or 'boojb-p-ehfl' substitutions may have occurred due to the inherent limitations of voice recording. Read the chart carefully and recognize, using context, where substitutions have occurred. [email or web address] Not available 01/15/2024 14:55:28 Plan of Treatment Reminders Order Date Submit Date Provider Last Modified By Organization Details Last Modified Time Details Appointments None recorded. Lab None recorded. Referral None recorded. Procedures None recorded. Surgeries None recorded. Imaging XR, foot, 3 or more view 2022 023 [email or web address] 7 [facility] Podiatry Jeffrey Colvin, [address], [place], [address], 13:51:07 Medication Orders doxycycline hyclate 100 mg tablet 2023 024 [facility], [address], [place], [address], 4 17:30:00 betamethaso ne dipropionat e 0.05 % topical cream 2023 [facility], [address], [place], [address], 4 15:40:24 clotrimazol e 1 % topical cream 2023 [facility], [address], [place], [address], 4 15:40:23 Patient TargetsNo targets recorded. Patient InstructionsNo instructions recorded. Reason for Referral None Reported. Results Created Date Observation Date Name Description Value Unit Range Abnormal Flag Note LastModifiedBy Organization Detail LastModifiedTime 07/01/19 23 XR, foot, 3 or more view No observ ation record ed. [email or web address] [facility] Podiatry Jeffrey Colvin [address], [place], [address], 06/30/2022 13:51:02 Result Notes None recorded. Problems Name Problem SNOMED Code Status Onset Date Resolution Date Notes Provider Name and Address Organization Details Recorded Time Enlarged uterus 787424239 Active Not Available [facility] 3 08:09:50 Lateral epicondyli tis 284825072 Active Not Available [facility] 3 08:09:50 Shoulder joint pain 716057966 Active Not Available [facility] 3 08:09:50 Disorder of bursa of shoulder region 04219279 Active Not Available [facility] 3 08:09:50 Back problem 402156223 Active 2022 Shantel patel, [facility] 3 17:08:20 Bowel problem 397911136 Active 2022 Shantel patel, [facility] 3 17:08:48 Disorder of eye 194073891 Active 2022 Shantel patel, [facility] 3 17:08:58 Ear problem 707813594 Active 2022 Shantel patel, [facility] 3 17:09:09 Hyperchole sterolemia 91935590 Active 2022 Shantel patel, [facility] 3 17:09:23 Cerebrovas cular accident 708916425 Active 2022 Shantel patel, 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 902428629 Active 2022 Arnav Jimenez DPM [address], [address], [place], [address] , [facility] 3 13:50:23 Tinea pedis 0904760 Active 2023 Arnav Jimenez DPM [address], [address], [place], [address] , [facility] 4 15:39:06 Pruritic rash 49607689 Active 2023 Arnav Jimenez DPM [address], [place], [address] , [facility] 4 15:39:28 Cellulitis of toe of left foot Active 2023 Arnav Jimenez DPM [address], [facility] [address], [place], [address] , [facility] 4 17:29:00 Blister of foot with infection 39165066 Active 2023 Arnav Jimenez DPM [address], [facility] [address], [place], [address] , [facility] 4 17:29:24 Notes:BLOOD CLOTS Problem Notes None recorded. Procedures Surgical History Date Name Laterality Status Provider Name and Address Organization Details Recorded Time Most Recent Mammogram completed Not Available [facility] 05/11/2022 08:06:29 Imaging Results None recorded. Procedure [...] Not Available Not Available Not Available Fluvirin 9253-8225 45 mcg (15 mcg x 3)/0.5 mL intramuscul ar suspension INJECT 0.5 ML INTRAMUSC ULARLY DIRECTED. active Not Available Not Available No t Available Fluzone High-Dose 4543-0088 (PF) 180 mcg/0.5 mL intramuscul ar syringe [...] Body mass index (BMI) Body weight Systolic And Diastolic Provider Name and Address Organization Details Last Updated DateTime 3 68 /min 14 /min 98 % 98 % 160.02 cm 21.8 kg/m2 13416.8 6 g 179/102 mm[Hg] Kathy VELAZCO [facility] [employer] [facility] 3 16:06:16 Date Recorded Body height Body mass index (BMI) Body weight Heart rate Respiratory rate Oxygen saturation Oxygen saturation in Arterial blood by Pulse oximetry Systolic And Diastolic Provider Name and Address Organization Details Last Updated DateTime 4 160.02 cm 21.8 kg/m2 47395.8 6 g 63 /min 14 /min 98 % 98 % 157/87 mm[Hg] Kathy Corona [facility] 4 15:13:10 Date Recorded Body height Body mass index (BMI) Body weight Heart rate Respiratory rate Oxygen saturation Oxygen saturation in Arterial blood by Pulse oximetry Systolic And Diastolic Provider Name and Address Organization Details Last Updated DateTime 4 160.02 cm 21.8 kg/m2 62309.8 6 g 57 /min 14 /min 98 % 98 % 180/89 mm[Hg] Kathy Corona [facility] 4 17:08:06 Date Recorded Body height Body mass index (BMI) Body weight Heart rate Respiratory rate Oxygen saturation Oxygen saturation in Arterial blood by Pulse oximetry Systolic And Diastolic Provider Name and Address Organization Details Last Updated DateTime 4 160.02 cm 21.8 kg/m2 91932.8 6 g 67 /min 14 /min 98 % 98 % 150/84 mm[Hg] Kathy Corona [facility] 4 14:09:14 Social History None recorded. Functional Status Question Answer Note LastModified by Organizat ion Details LastModified Time What is your level of alcohol consumption? 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[id number] Information not available 05/11/2022 Mental Status [...] Diagnosis SNOMED-CT Code Diagnosis ICD10 Code Diagnosis IMO Codes Diagnosis Note [id number] Arnav Jimenez DPM [facility] [place] [address] [place] [address] 06/23/2022 15:56:51 06/30/2022 18:29:17 Pain of toe of left foot 3792399534 75963 M79.675 options reviewed with the patientCon tinue supportive shoe gearRecomm end silicone toe capFollow- up as needed Flexion co ntracture of toe interphalangeal joint 160685825 M21.279 left great toe- interphala ngeal jointEduca whitney on treatment options patient defer surgeryFol low-up as needed [id number] Arnav Jimenez DPM [facility] [place] [address] [place] [address] 08/14/2023 14:57:26 09/04/2023 10:01:23 Tinea pedis 9540987 B35.3 right footdaily foot hygieneedu cated on conditionf ollow-up 1 week if not resolved Pruritic rash 88106521 L 28.2 right foot [id number] Arnav Jimenez DPM [facility] Podiatry [place] [address] [place] [address] 01/08/2024 16:59:24 03/07/2024 14:49:00 Tinea pedis 2232779 B35.3 right foot - resolved Cellulitis of toe of left foot 7726742015 L03.032 3rd toemonitor for worsening signs of infection at present seek medical attention immediatel yFollow-up in 1 week Blister of foot with infection 10633604 S90.822A 3rd toedaily wound careoffloa dingfollow -up one-week [id number] Arnav Jimenez DPM [facility] [place] [address] [place] [address] 01/15/2024 13:58:46 03/07/2024 15:15:00 Cellulitis of toe of left foot 0827279863 L03.032 resolvedfi jefe antibiotic sfollow-up as needed Health Concerns Section Related Observation LastModified by Organization Detai ls LastModified Time None Recorded Concern Status LastModified by Organization Details LastModified Time None Recorded Advance Directives Directive None Recorded Payers Insurance Date Sequence Insurance Name Policy Number Policy Mix Covered Member ID Mix Member ID Guarantor Name 01/12/2024 1 [place] Evelyn Gee [id number] Evelyn Gee 03/07/2024 2 [facility] (MEDICARE SUPPLEMENT) PLAN F Evelyn Gee [id number] Evelyn Gee 01/12/2024 [employer] ASSIGNED (MEDICARE DME REGION B) Evelyn Gee [id number] Evelyn Gee 01/08/2024 [employer] ASSIGNED (MEDICARE DME REGION B) Evelyn Gee [id number] Evelyn Gee Notes Date Note Type Note [...] Patient denies any other pedal complaints. Arnav Jimenez DPM [address] [facility] [address], [place], [address], [facility] [employer] 06/30/2022 13:53:01 08/14/2023 text/html . Patient is [...] this. Arnav Jimenez DPM [address], [place], [address], [employer] [facility] 09/04/2023 09:16:20 01/08/2024 text/html . Patient is [...] Arnav Jimenez DPM [address], [place], [address], [facility] 01/13/2024 13:20:28 01/15/2024 text/html . Patient is [...] nausea vomiting. Arnav Jimenez DPM [address], [place], [address], [facility] 01/15/2024 14:55:47 OBGyn Episode No OBEpisode recorded.
--- OUTSIDE RECORDS SUMMARY | 2024-12-07 14:18 | XMS_ITS | Clinical Summary ---
Author Organization [facility] Address [address] [place] [address] Care Team Providers Care Helper Coordinator Name Role Phone Unavailable Primary Care Provider Unavailabl e Source Comments [facility],non-owned Affiliates and Associated Physician Practices is amultiple site organization consisting of ambulatory clinics and hospital sitesin [place], [place], [place] and [place]. This disclosure is being madepursuant to the Care Everywhere program and may not contain all information available regarding this patient. Last updated 17.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
--- NOTE | 2024-12-07 14:51 | ED.DIZZY ---
HPI - Dizziness General Chief Complaint: Syncope Stated Complaint: Syncopal Episode Time Seen by Provider: 12/07/24 14:07 History of Present Illness HPI Narrative: Patient is an 84-year-old female who presents to the after a near syncopal event. She reports she was at a luncheon, ate lunch and then started to feel faint. Patient reports she vomited and had to be carried out of the luncheon on a chair. She reports she also started sweating. Patient endorses a history of hypoglycemia, high blood pressure, and strokes in 2017. She denies any chest pain, acute back pain, cough, shortness of breath or recent fevers. Related Data Home Medications ?Medication ?Instructions ?Recorded ?Confirmed ?Last Taken ?Type ascorbic acid (vitamin C) 500 mg 500 mg PO DAILY 03/19/19 12/07/24 02/21/21 History capsule dorzolamide-timolol (PF) 2 %-0.5 % 1 drop RIGHT EYE BID 03/19/19 12/07/24 02/21/21 History eye drops in a dropperette (Cosopt (PF)) travoprost 0.004 % eye drops 1 drop ophthalmic (eye) QPM 03/19/19 12/07/24 02/21/21 History (Travatan Z) calcium 500 mg tablet 1,200 mg PO DAILY 12/09/19 12/07/24 02/21/21 History multivitamin (Daily Multi-Vitamin 1 tablet PO DAILY 12/09/19 12/07/24 02/21/21 History tablet) multivitamin with minerals 1 tablet PO DAILY 01/13/21 12/07/24 02/21/21 History (Hair,Skin and Nails tablet) cholecalciferol (vitamin D3) 50 25 mcg PO DAILY 05/08/23 12/07/24 Unknown History mcg (2,000 unit) tablet iodine (kelp) 1 tablet PO DAILY 05/08/23 12/07/24 Unknown History lycopene 10 mg capsule 10 mg PO DAILY 05/08/23 12/07/24 Unknown History folic acid 400 mcg tablet 0.4 mg PO DAILY 02/13/24 12/07/24 Unknown History aspirin 81 mg chewable tablet 81 mg PO HS 06/12/24 12/07/24 Unknown History nrpheyk-qrvtjqdqh-hnhy tablet 3 tablet PO DAILY 12/07/24 12/07/24 Unknown History carvedilol 6.25 mg tablet 6.25 mg PO DAILY 12/07/24 12/07/24 Unknown History coenzyme Q10 100 mg capsule 200 mg PO DAILY 12/07/24 12/07/24 Unknown History levothyroxine 25 mcg tablet 50 mcg PO DAILY 12/07/24 12/07/24 Unknown History rosuvastatin 40 mg tablet (Crestor) 40 mg PO HS 12/07/24 12/07/24 Unknown History triamcinolone acetonide 0.1 % 1 applic topical BID 12/07/24 12/07/24 Unknown History topical cream Allergies Allergy/AdvReac Type Severity Reaction Status Date / Time cobalt Allergy Intermediate Itching Verified 12/07/24 20:06 fragrance Allergy Mild Unknown Uncoded 11/05/24 08:56 Review of Systems Review of Systems: All systems reviewed & are unremarkable except as noted in HPI and below PMFSH Past Medical History Medical History Syncope and collapse Fibromuscular dysplasia Cholelithiasis NOS Chronic insomnia Right homonymous hemianopsia Lymphocytic colitis Pure hypercholesterolemia Acid reflux History of CVA (cerebrovascular accident) Hypothyroidism Stenosis of left vertebral artery Stroke Surgical History Surgical History No pertinent past surgical history Family History Family History (Updated 12/07/24 @ 22:50 by Ruben Jose RN) Mother Hypertension Father Acute myocardial infarction Heart disease Hypertension Sibling Diabetes mellitus Acute myocardial infarction Heart disease Hypertension Other Asthma Social History Social History Smoking status: Never smoker Second hand tobacco smoke exposure: No Alcohol intake: never Substance use: never Substance use type: does not use Lack of Transportation: No Lack of Food: Never True Current Housing: I Have Housing Concerned About Future Housing: No Difficulty Paying Gas/Electric Bills: No Difficulty Paying for Meds: No Currently Unemployed: No Education: Bachelor's Degree Difficulty w/ Childcare or Family Care: No Living arrangements: with family Gender identity (if verbalized by the patient): Female Spiritual care concerns: No Exam Narrative: GENERAL: Ill appearing, well-nourished, non-toxic, in no acute distress. HEAD: Normocephalic, atraumatic. NECK: Supple. No adenopathy, no masses. RESPIRATORY: Airway patent, respirations nonlabored. Clear to auscultation bilaterally, no rales, rhonchi, wheezing. CARDIOVASCULAR: Bradycardia. Peripheral pulses 2+ and equal bilaterally. ABDOMINAL: Soft, nontender, nondistended, no hepatosplenomegaly. Normoactive BS. MUSCULOSKELETAL: Moves all extremities. Strength/ROM intact without gross deformities. SKIN: Warm, dry, pallor. No rashes. NEURO: A&O X3. Speech clear. Cranial nerves II-XII intact. No ataxic movements. PSYCHIATRIC: Appropriate mood and affect. Normal interaction. Course Vital Signs Vital signs: Vital Signs Temperature 36.7 C 12/07/24 13:32 Pulse Rate 59 L 12/07/24 13:32 Respiratory Rate 18 12/07/24 13:32 Blood Pressure 204/92 H 12/07/24 13:32 Pulse Oximetry 96 12/07/24 13:32 Oxygen Delivery Room Air 12/07/24 13:32 Temperature 36.2 C L 12/08/24 04:35 Pulse Rate 63 12/08/24 12:00 Respiratory Rate 16 12/08/24 04:35 Blood Pressure 153/50 H 12/08/24 04:35 Pulse Oximetry 97 12/08/24 04:35 Oxygen Delivery Room Air 12/08/24 08:00 MDM - Dizziness MDM Narrative Medical decision making narrative: Patient is an 84-year-old female who presents to the after a near syncopal event. She reports she was at a luncheon, ate lunch and then started to feel faint. Patient reports she vomited and had to be carried out of the luncheon on a chair. She reports she also started sweating. Patient endorses a history of hypoglycemia, high blood pressure, and strokes in 2017. She denies any chest pain, acute back pain, cough, shortness of breath or recent fevers. Labs Ordered: CBC, CMP, UA, COVID/flu/RSV swab, TSH, proBNP Imaging Ordered: CT brain, chest x-ray Medications Ordered: 1 L normal saline IV bolus, hydralazine 10 mg IV, lisinopril 40 mg p.o. Diagnosis: Near syncopal episode Consults: [id number]-spoke with hospitalist, ROXANA Gottlieb, who was in agreement with plan for admission. Patient will be admitted to the hospital for further evaluation and treatment. MDM: Results of imaging and lab work shared with patient and her family. It was advised patient be admitted to the hospital for further evaluation and treatment. Patient and her family verbalized understanding and are in agreement with plan. CRITICAL CARE ADDENDUM: Indication: unknown cause of near syncopal episode, hx of strokes Time type: intermittent I provided a total of 45 minutes of critical care excluding separately billable procedures. This includes time w/ EMS, initial bedside evaluation, reviewing old records, review of testing done while under my care, discussion w/ the family, nurses, exchange underwriting consultant and guiding the patient?s care while in the emergency department. Approximate time distribution: 5 minutes ? Initial evaluation, d/w involved parties, attempting to gather old records. 10 minutes ? Documenting medical record 10 minutes ? Review of results (EKGs, labs, imaging) 10 minutes ? Serial repeat bedside evaluation 10 minutes ? Discussing case with multiple providers Please see main chart for details. Excludes separately billable procedures. Differential Diagnosis Differential diagnosis: Likely benign paroxysmal positional vertigo, orthostatic hypotension, cerebrovascular accident and transient cerebral ischemia Lab Data Attestation: I reviewed the patient's lab results. 12/08/24 09:49 12/08/24 09:49 Labs: Lab Results 12/07/24 12/07/24 12/07/24 Range/Units 13:56 15:08 15:17 WBC 6.0 (4.5-10.0) K/mm3 RBC 4.17 L (4.2-5.4) M/mm3 Hgb 11.8 L (12.0-15.0) g/dL Hct 37.2 (37.0-47.0) % MCV 89.2 (80-100) fl MCH 28.3 (26-34) pg MCHC 31.7 L (32-36) g/dl RDW 13.2 (11.5-14.5) % Plt Count 144 L (150-375) k/mm3 MPV 11.8 H (7.4-10.4) fl Immature Gran % (Auto) 0.2 (0-0.5) % Neut % (Auto) 60.9 (45.5-73.1) % Lymph % (Auto) 28.9 (18.3-44.2) % [place] % (Auto) 8.4 (2.6-8.5) % Eos % (Auto) 1.3 (0-4.4) % Baso % (Auto) 0.3 (0.2-1.2) % Lymph # (Auto) 1.72 (0.9-3.2) K/mm3 [place] # (Auto) 0.5 (0.1-0.6) K/mm3 Eos # (Auto) 0.1 (0-0.3) K/mm3 Baso # (Auto) 0.0 (0.0-0.1) K/mm3 Abs Immat Gran (auto) 0.01 (0.00-0.031) K/mm3 Absolute Neuts (auto) 3.6 (1.3-6.7) K/mm3 Absolute Nucleated RBC 0.000 (0.0-0.012) K/mm3 Nucleated RBC % 0.0 (0.0-0.2) % Sodium 136 L (137-145) mmol/L Potassium 4.0 (3.4-5.0) mmol/L Chloride 104 (98-107) mmol/L Carbon Dioxide 23 (22-30) mmol/L Anion Gap 9 (4-12) mmol/L BUN 29 H D (7-17) mg/dL Creatinine 1.44 H (0.7-1.0) mg/dL Estim Creat Clear Calc 21 ml/min Estimated GFR 35 L (59 - ) Glucose 133 H (65-110) mg/dL Calcium 9.1 (8.4-10.2) mg/dL Total Bilirubin 1.6 H (0.2-1.3) mg/dL AST 38 H (14-36) U/L ALT 22 (6-35) U/L Alkaline Phosphatase 66 (38-126) U/L Troponin I < 0.012 (0.000-0.034) ng/mL NT-Pro-B Natriuret Pep 948 H (19.9-100) pg/mL Total Protein 6.9 (6.3-8.2) g/dL Albumin 4.2 (3.5-5.1) g/dL TSH (Reflex) 3.420 (0.465-4.68) uIU/mL Urine Color Yellow (Yellow) Urine Appearance Clear (Clear) Urine pH 6.5 (5.0-9.0) Ur Specific [place] 1.022 (1.001-1.035) Urine Protein 2+ H (Negative) mg/dL Urine Glucose (UA) Negative (Negative) mg/dL Urine Ketones Trace H (Negative) mg/dL Ur Blood (Man) Negative (Negative) Urine Nitrate Negative (Negative) Urine Bilirubin Negative (Negative) Urine Urobilinogen 1.0 (<2.0) mg/dL Leukocyte Esterase Rfl Trace H (Negative) SAMEERA/UL Urine RBC 0-2 (0-2) /hpf Urine WBC 0-5 (0-3) /hpf Ur Squamous Epith Cells None seen (Few) /hpf Urine Bacteria None seen /hpf Urine Casts 11-20 Hyaline Casts Present (None) /lpf Influenza A (RT-PCR) Negative (Negative) Influenza B (RT-PCR) Negative (Negative) RSV (RT-PCR) Negative (Negative) SARS-CoV-2 RNA (RT-PCR) Negative (Negative) Imaging Data Attestation: I personally reviewed and interpreted this imaging study as follows: Radiologist's impression: Impressions Chest X-Ray 12/07/24 14:32 Impression: No acute cardiopulmonary abnormality. Head CT 12/07/24 15:07 Impression: 1.No acute intracranial abnormality. Critical Care Time Critical Care Time Critical Care Time: Yes Total Critical Care Time: 45 Discharge Plan Discharge Clinical Impression: Near syncope, Dizziness of unknown cause Patient Disposition: Still a Patient Condition: Stable
[2024-12-07 15:17] LABS: NT Pro B Type Natriuretic Pept 948 pg/mL (19.9-100)
[2024-12-07] MEDS: SODIUM CHLORIDE 0.9% IV 1,000 ML 999 ML IV CONT (15:18)
[2024-12-07 15:36] LABS: Thyroid Stimulating Hormone Reflex 3.420 uIU/mL (0.465-4.68)
[2024-12-07 15:43] LABS: Add Urine Microscopic? YES; Appearance Urine Clear (Clear); Glucose Urine UA Negative (Negative); Leukocyte Esterase Ur Trace LEU/UL (Negative); Nitrate Urine Negative (Negative); Specific Grav Ur 1.022 (1.001-1.035)
[2024-12-07 16:06] LABS: Influenza A QL RT-PCR Negative (Negative); Influenza B QL RT-PCR Negative (Negative); RSV RNA, RT-PCR Negative (Negative); SARS-CoV-2 RNA PCR Negative (Negative)
[2024-12-07] MEDS: SODIUM CHLORIDE 0.9% IV 1,000 ML 125 ML IV CONT (16:39)
[2024-12-07 16:58] LABS: Troponin I < 0.012 ng/mL (0.000-0.034)
--- NOTE | 2024-12-07 18:51 | P.HP_ITS ---
H&P: HPI History of Present Illness Date/Time: 12/07/24 18:51 Chief Complaint: Near Syncope Narrative: 84-year-old female past medical history of stroke, hypothyroidism, and hyperlipidemia presents the hospital with syncope. Patient states that she went to a today, she states that was not emotionally distressing for her as she did not really know the person. She says that sometimes she gets hypoglyce lucy and tries to eat on a regular schedule. Due to the they ate about an hour and half later than she normally would eat. She states that she was extremely hungry so she ate a lot of positive cream sauce. She was feeling fine and then on the way out of the restaurant all of a sudden she felt extremely sick and vomited. She became diaphoretic. EMS was called. She states that she also vomited once she arrived to the hospital. She states that all of her symptoms are resolved now. She complains of a little bit of fatigue. Denies any stroke-like symptoms. Denies fevers chills nausea, shortness of breath. Lab work in the ED shows hemoglobin of 11.8 sodium of 136, BUN of 22, creatinine of 1.44, GFR of 35 which is all room baseline, glucose of 133, total bili 1.6, AST 38, BNP 948, troponin negative, UA with trace leukocyte esterase. Influenza A/B, RSV, COVID negative. Head CT with no acute findings. Chest x-ray with no acute findings. EKG shows sinus bradycardia with first-degree AV block rate of 55. Review of Systems Review of Systems: 12 systems were reviewed and are negativ e except for as per HPI. [facility] Past Medical History Medical History Syncope and collapse Fibromuscular dysplasia Cholelithiasis NOS Chronic insomnia Right homonymous hemianopsia Lymphocytic colitis Pure hypercholesterolemia Acid reflux History of CVA (cerebrovascular accident) Hypothyroidism Stenosis of left vertebral artery Stroke Surgical History Surgical History No pertinent past surgical history Family History Family History Mother No problems noted. Father Acute myocardial infarction Hypertension Heart disease Sibling Acute myocardial infarction Diabetes mellitus Hypertension Heart disease Other Asthma Social History Social History Smoking status: Never smoker Second hand tobacco smoke exposure: No Alcohol intake: never Substance use: never Substance use type: does not use Current Housing: Decline to Answer Concerned About Future Housing: Decline to Answer Difficulty Paying Gas/Electric Bills: Decline to Answer Difficulty Paying for Meds: Decline to Answer Currently Unemployed: Decline to Answer Education: Decline to Answer Difficulty w/ Childcare or Family Care: Decline to Answer Living arrangements: with family Gender identity (if verbalized by the patient): Female Spiritual care concerns: No Meds Home Medications and Allergies Home Medications ?Medication ?Instructions ?Recorded ?Confirmed ?Type ascorbic acid (vitamin C) 500 mg 500 mg PO DAILY 03/1912/07/24 History capsule dorzolamide-timolol (PF) 2 %-0.5 % 1 drop RIGHT EYE BI D 03/19/19 12/07/24 History eye drops in a dropperette (Cosopt (PF)) travoprost 0.004 % eye drops 1 drop ophthalmic (eye) Q PM 03/19/19 12/07/24 History (Travatan Z) calcium 500 mg tablet 1,200 mg PO DAILY 12/09/19 0 12/07/24 History multivitamin (Daily Multi-Vitamin 1 tablet PO DAILY 12/07/24 History tablet) multivitamin with minerals 1 tablet PO DAILY 01/13/21 12/07/24 History (Hair,Skin and Nails tablet) cholecalciferol (vitamin D3) 50 25 mcg PO DAILY 12/07/24 History mcg (2,000 unit) tablet iodine (kelp) 1 tablet PO DAILY 05/08/23 0 12/07/24 History lycopene 10 mg capsule 10 mg PO DAILY 05/08/2311/12 History folic acid 400 mcg tablet 0.4 mg PO DAILY 02/13/24 History omeprazole 20 mg capsule,delayed 20 mg PO DAILY #90 ca ps 03/04/24 12/07/24 Rx release aspirin 81 mg chewable tablet 81 mg PO HS 06/12/24 History ipratropium bromide 21 mcg (0.03 2 spray intranasal .q d-tid #30 mL 05/28/25 09/27/25 Rx %) nasal spray xhrjiic-fgywfjshi-vfdo tablet 3 tablet PO DAILY 12/07/24 History carvedilol 6.25 mg tablet 6.25 mg PO DAILY 12/07/24 History coenzyme Q10 100 mg capsule 200 mg PO DAILY 12/07/24 0 12/07/24 History levothyroxine 25 mcg tablet 50 mcg PO DAILY 12/07/24 0 12/07/24 History lisinopril 20 mg tablet 20 mg PO HS 12/07/24 5 History rosuvastatin 40 mg tablet (Crestor) 40 mg PO HS 12/07/24 History triamcinolone acetonide 0.1 % 1 applic topical BID 12/07/24 History topical cream Allergies Allergy/AdvReac Type Severity Reaction Status Date / Time cobalt Allergy Intermediate Itching Verified 12/07/24 20:06 fragrance Allergy Mild Unknown Uncoded 11/05/24 08:56 Vital Signs Vital Signs - 24 hr 12/07/24 13:32 12/07/24 14:19 12/07/24 16:41 Temperature 98.1 F Pulse Rate 59 L 61 66 Respiratory Rate 18 20 Blood Pressure 204/92 H 184/74 H 207/75 H Pulse Oximetry 96 97 Oxygen Delivery Room Air 12/07/24 16:44 12/07/24 16:45 12/07/24 16:58 Temperature Pulse Rate 67 68 70 Respiratory Rate 21 H Blood Pressure 195/83 H 169/90 H Pulse Oximetry 96 Oxygen Delivery 12/07/24 17:01 Temperature Pulse Rate 69 Respiratory Rate 21 H Blood Pressure 161/68 H Pulse Oximetry 99 Oxygen Delivery Exam Narrative: General: well appearing, appears stated age. HEENT: normocephalic, atraumatic. Mucous membranes moist. EOMI, PERRLA, bilateral sclera anicteric, no conjunctival injection. Neck supple without JVD, lymphadenopathy, or bruit. Respiratory: clear to ascultation bilaterally. No rales/rhonic/wheezes. Cardiovascular: Regular rate and rhythm, normal S1-S2 upon ascultation. No murmurs, rubs, or clicks. PMI is nondisplaced, capillary refill less than 3 second. Abdomen: Soft, round, no pulsatile masses, nondistended and nontender. No rebound, no guarding. No CVA tenderness, no hepatosplenomegaly. Bowel sounds present to all four quadrants. No high pitch or tinkling sounds, resonant to percussion. Extremities: No cyanosis, clubbing, or edema present. Pulses are palpable 2/2. Active ROM to all four extremities. Neuro: Alert and orientated x 4. PERRLA. Cranial nerves 2-12 intact without focal deficit. Skin: Warm, dry, and intact, without rash, erythema, or lesion. Psych: pleasant, cooperative, normal speech, normal affect, no hallucinations, no dysarthia H&P: Results Labs Labs: Short CBC 12/07/24 Range/Units 13:56 WBC 6.0 (4.5-10.0) K/mm3 Hgb 11.8 L (12.0-15.0) g/dL Hct 37.2 (37.0-47.0) % Plt Count 144 L (150-375) k/mm3 BMP 12/07/24 13:56 Sodium 136 L Potassium 4.0 Chloride 104 Carbon Dioxide 23 BUN 29 H D Creatinine 1.44 H Glucose 133 H Calcium 9.1 Cardiac Enzymes 12/07/24 Range/Units 13:56 Troponin I < 0.012 (0.000-0.034) ng/mL Liver Function 12/07/24 Range/Units 13:56 Total Bilirubin 1.6 H (0.2-1.3) mg/dL AST 38 H (14-36) U/L ALT 22 (6-35) U/L Alkaline Phosphatase 66 (38-126) U/L Albumin 4.2 (3.5-5.1) g/dL Urine 12/07/24 Range/Units 15:17 Urine Color Yellow (Yellow) Urine Appearance Clear (Clear) Urine pH 6.5 (5.0-9.0) Ur Specific [place] 1.022 (1.001-1.035) Urine Protein 2+ H (Negative) mg/dL Urine Glucose (UA) Negative (Negative) mg/dL Assessment and Plan Assessment and plan (1) Near syncope: Code(s): R55 - Syncope and collapse Status: Acute Assessment and Plan: Telemetry monitoring Orthostatic vital signs EKG shows sinus Zaid with first-degree AV block Brain MRI for possible stress PT OT eval (2) Essential (primary) hypertension: Code(s): I10 - Essential (primary) hypertension Status: Acute Assessment and Plan: Orthostatics negative Will restart blood pressure meds (3) Hyperlipidemia: Qualifiers: Hyperlipidemia type: unspecified Qualified Code(s): E78.5 - Hyperlipidemia, unspecified Code(s): E78.5 - Hyperlipidemia, unspecified Status: Acute Assessment and Plan: Continue Crestor (4) Hypothyroidism: Qualifiers: Hypothyroidism type: unspecified Qualified Code(s): E03.9 - Hypothyroidism, unspecified Code(s): E03.9 - Hypothyroidism, unspecified Status: Acute Assessment and Plan: Continue levothyroxine (5) Chronic kidney disease (CKD) stage G3b/A1, moderately decreased glomerular filtration rate (GFR) between 30-44 mL/min/1.73 square meter and albuminuria creatinine ratio less than 30 mg/g: Code(s): N18.32 - Chronic kidney disease, stage 3b Status: Acute Assessment and Plan: Kidney function baseline BMP in the morning (6) Hypoglycemia: Code(s): E16.2 - Hypoglycemia, unspecified Status: Acute Assessment and Plan: Patient was hypoglycemic here in the emergency room which could cause her to be diaphoretic and weak Accu-Cheks q.6 Hypoglycemia protocol Quality VTE Prophylaxis VTE prophylaxis: mechanical ordered and pharmacologic ordered Hospitalist MIPS Advance Care Plan I have confirmed that the patient's Advanced Care Plan is present, code status is documented, or surrogate decision maker is listed in patient medical record.: Yes Medication Reconciliation I have utilized all available resources to obtain, update and review the patients current medications (includes all prescriptions, OTC, herbals, cannabis, and nutritional supplements).: Yes
[2024-12-07] MEDS: ROSUVASTATIN 20 MG TABLET 40 MG PO (22:52)
[2024-12-07] MEDS: ASPIRIN 81 MG CHEWABLE TABLET PO (22:52)
[2024-12-07] MEDS: DORZOLAMIDE/TIMOLOL OPHTH SOL 10 ML BOTTLE 1 DROP RIGHT EYE (23:31)
[2024-12-07] MEDS: LATANOPROST 0.005% OP SOLN 2.5 ML BTL 1 DROP EACH EYE (23:31)
[2024-12-08] VITALS: PULSE 62
[2024-12-08 04:35] VITALS: BP 153/50; PULSE 62; RESP 16; TEMP 36.2; O2SAT 97
[2024-12-08] MEDS: LEVOTHYROXINE SODIUM 50 MCG TABLET PO (06:04)
[2024-12-08 06:24] VITALS: PULSE 63
[2024-12-08 08:00] VITALS: PULSE 55
[2024-12-08 08:10] VITALS: PULSE 68
[2024-12-08] MEDS: FOLIC ACID 0.4 MG TABLET PO (08:10)
[2024-12-08] MEDS: PANTOPRAZOLE 40 MG TABLET PO (08:10)
[2024-12-08] MEDS: DORZOLAMIDE/TIMOLOL OPHTH SOL 10 ML BOTTLE 1 DROP RIGHT EYE (08:13)
[2024-12-08 10:02] LABS: Hematocrit 34.4 % (37.0-47.0); Hemoglobin 10.9 g/dL (12.0-15.0); Immature Platelet Fraction Pct 6.0 % (0.9-11.2); Mean Corpuscular HGB Conc 31.7 g/dl (32-36); Mean Corpuscular Hemoglobin 28.4 pg (26-34); Mean Corpuscular Volume 89.6 fl (80-100); Platelet Count Result 126 k/mm3 (150-375); Red Blood Count 3.84 M/mm3 (4.2-5.4); White Blood Count 4.8 K/mm3 (4.5-10.0)
[2024-12-08 10:14] LABS: Alanine Aminotransferase 22 U/L (6-35); Albumin Level 3.3 g/dL (3.5-5.1); Alkaline Phosphatase 52 U/L (38-126); Anion Gap 7 mmol/L (4-12); Aspartate Amino Transferase 27 U/L (14-36); Bilirubin,Total 1.3 mg/dL (0.2-1.3); Blood Urea Nitrogen 21 mg/dL (7-17); Calcium 8.5 mg/dL (8.4-10.2); Carbon Dioxide 24 mmol/L (22-30); Chloride 108 mmol/L (98-107); Estimated CRCL calculation 27 ml/min; Estimated Glomerular Filt Rate 47; Glucose 150 mg/dL (65-110); Magnesium 2.0 mg/dL (1.6-2.3); Potassium 3.1 mmol/L (3.4-5.0); Sodium 139 mmol/L (137-145); Total Protein 5.6 g/dL (6.3-8.2)
[2024-12-08 12:00] VITALS: PULSE 63
[2024-12-08] MEDS: POTASSIUM CHLORIDE 20 MEQ PACKET (FOR LIQUID) 40 MEQ PO (12:02)
[2024-12-08] MEDS: IPRATROPIUM NASAL SPRAY 0.03% 15 ML BOTTLE 2 SPRAY NASAL (13:18)
--- NOTE | 2024-12-08 13:54 | P.DS_ITS ---
DS: Admitting Diagnosis Discharge Date 12/08/2024 Admitting Diagnosis Near-syncope/hypoglycemic event DS: Discharge Diagnosis Discharge Diagnosis (1) Near syncope: Code(s): R55 - Syncope and collapse Status: Acute (2) Essential (primary) hypertension: Code(s): I10 - Essential (primary) hypertension Status: Acute (3) Hyperlipidemia: Qualifiers: Hyperlipidemia type: unspecified Qualified Code(s): E78.5 - Hyperlipidemia, unspecified Code(s): E78.5 - Hyperlipidemia, unspecified Status: Acute (4) Hypothyroidism: Qualifiers: Hypothyroidism type: unspecified Qualified Code(s): E03.9 - Hypothyroidism, unspecified Code(s): E03.9 - Hypothyroidism, unspecified Status: Acute (5) Chronic kidney disease (CKD) stage G3b/A1, moderately decreased glomerular filtration rate (GFR) between 30-44 mL/min/1.73 square meter and albuminuria creatinine ratio less than 30 mg/g: Code(s): N18.32 - Chronic kidney disease, stage 3b Status: Acute (6) Hypoglycemia: Code(s): E16.2 - Hypoglycemia, unspecified Status: Acute DS: Summary Hospital Course Reason for hospitalization: Near-syncope/hypoglycemic Hospital Course: Admission: Patient was a 84-year-old female past medical history of stroke, hypothyroidism, and hyperlipidemia presents the hospital with syncope. Patient states that she went to a today, she states that was not emotionally distressing for her as she did not really know the person. She says that sometimes she gets hypoglycemic and tries to eat on a regular schedule. Due to the they ate about an hour and half later than she normally would eat. She states that she was extremely hungry so she ate a lot of positive cream sauce. She was feeling fine and then on the way out of the restaurant all of a sudden she felt extremely sick and vomited. She became diaphoretic. EMS was called. She states that she also vomited once she arrived to the hospital. She states that all of her symptoms are resolved now. She complains of a little bit of fatigue. Denies any stroke-like symptoms. Denies fevers chills nausea, shortness of breath. In the ED: hemoglobin of 11.8 sodium of 136, BUN of 22, creatinine of 1.44, GFR of 35 which is all room baseline, glucose of 133, total bili 1.6, AST 38, BNP 948, troponin negative, UA with trace leukocyte esterase. Influenza A/B, RSV, COVID negative. Head CT with no acute findings. Chest x-ray with no acute findings. EKG shows sinus bradycardia with first-degree AV block rate of 55. Hospital Course: Patient was admitted to for observation overnight in further evaluation treatment of near syncopal episode hyperglycemia. Patient had reported no further events denied any dizziness, visual changes or syncopal episodes. Patient's glucose remained stable during hospitalization patient reported that she does have intermittent episodes of hypoglycemia and stays on a strict eating schedule. Patient did undergo MRI to rule out CVA since she does have a previous history stroke however patient with no neurological deficits at time of assessment. Patient reported she felt as though she was back to her baseline currently follows with Neurology outpatient. MRI was completed however has not had interpretation but due to patient's current status she was discharged home skilled likely secondary to a hypoglycemic event pill CVA low suspicion currently or any on aspirin 81 mg atorvastatin. Will continue to monitor for final interpretation of MRI after discharge and send records to patient's beni rologist recommend to call for follow-up appointment post discharge. Patient did have hypertensive urgency upon admission which has improved with medication I did transition patient from lisinopril to Procardia 30 mg for better BP control as well as due to her underlying CKD stage 3. Patient acknowledges agree with discharge plan patient was discharged home. Status at Discharge Functional status at discharge: independent ambulation Overall status at discharge: patient is back to baseline Time Spent with Patient Time attestation: Total time spent providing and/or coordinating discharge services: Time spent: Greater than 30 minutes Exam Const: General: comfortable and no acute distress HENMT: Mouth: Yes moist mucous membranes Eyes: General: appearance normal, both eyes and all related structures Neck: Neck: supple Resp: Effort & Inspection: normal respiratory effort Auscultation: clear to auscultation bilaterally Cardio: Rate: regular rate Rhythm: regular rhythm GI: GI Palp: Yes Soft to palpation Auscultation: normal bowel sounds Neuro: General: gait normal Motor exam (neuro): 5/5 motor strength present throughout Sensory Exam: normal sensation Extrem: General: normal to inspection Psych: Mental Status: mental status grossly normal Affect: normal affect DS: Data Data Completed and Pending Labs on day of discharge: Labs from last 24 hours 12/08/24 12/08/24 12/08/24 11:20 09:49 00:35 WBC 4.8 RBC 3.84 L Hgb 10.9 L Hct 34.4 L MCV 89.6 MCH 28.4 MCHC 31.7 L RDW 13.2 Plt Count 126 L MPV 11.7 H Immature Gran % (Auto) Neut % (Auto) Lymph % (Auto) [place] % (Auto) Eos % (Auto) Baso % (Auto) Lymph # (Auto) [place] # (Auto) Eos # (Auto) Baso # (Auto) Abs Immat Gran (auto) Absolute Neuts (auto) Absolute Nucleated RBC Nucleated RBC % % Immature Plt Fraction 6.0 Sodium 139 Potassium 3.1 L Chloride 108 H Carbon Dioxide 24 Anion Gap 7 BUN 21 H Creatinine 1.10 H Estim Creat Clear Calc 27 Estimated GFR 47 L Glucose 150 H POC Capillary Glucose 88 85 Calcium 8.5 Magnesium 2.0 Total Bilirubin 1.3 AST 27 ALT 22 Alkaline Phosphatase 52 Troponin I NT-Pro-B Natriuret Pep Total Protein 5.6 L Albumin 3.3 L TSH (Reflex) Urine Color Urine Appearance Urine pH Ur Specific [place] Urine Protein Urine Glucose (UA) Urine Ketones Ur Blood (Man) Urine Nitrate Urine Bilirubin Urine Urobilinogen Leukocyte Esterase Rfl Urine RBC Urine WBC Ur Squamous Epith Cells Urine Bacteria Urine Casts Hyaline Casts Influenza A (RT-PCR) Influenza B (RT-PCR) RSV (RT-PCR) SARS-CoV-2 RNA (RT-PCR) 12/07/24 12/07/24 12/07/24 16:44 15:17 15:08 WBC RBC Hgb Hct MCV MCH MCHC RDW Plt Count MPV Immature Gran % (Auto) Neut % (Auto) Lymph % (Auto) [place] % (Auto) Eos % (Auto) Baso % (Auto) Lymph # (Auto) [place] # (Auto) Eos # (Auto) Baso # (Auto) Abs Immat Gran (auto) Absolute Neuts (auto) Absolute Nucleated RBC Nucleated RBC % % Immature Plt Fraction Sodium Potassium Chloride Carbon Dioxide Anion Gap BUN Creatinine Estim Creat Clear Calc Estimated GFR Glucose POC Capillary Glucose 99 Calcium Magnesium Total Bilirubin AST ALT Alkaline Phosphatase Troponin I NT-Pro-B Natriuret Pep Total Protein Albumin TSH (Reflex) Urine Color Yellow Urine Appearance Clear Urine pH 6.5 Ur Specific [place] 1.022 Urine Protein 2+ H Urine Glucose (UA) Negative Urine Ketones Trace H Ur Blood (Man) Negative Urine Nitrate Negative Urine Bilirubin Negative Urine Urobilinogen 1.0 Leukocyte Esterase Rfl Trace H Urine RBC 0-2 Urine WBC 0-5 Ur Squamous Epith Cells None seen Urine Bacteria None seen Urine Casts 11-20 Hyaline Casts Present Influenza A (RT-PCR) Negative Influenza B (RT-PCR) Negative RSV (RT-PCR) Negative SARS-CoV-2 RNA (RT-PCR) Negative 12/07/24 13:56 WBC 6.0 RBC 4.17 L Hgb 11.8 L Hct 37.2 MCV 89.2 MCH 28.3 MCHC 31.7 L RDW 13.2 Plt Count 144 L MPV 11.8 H Immature Gran % (Auto) 0.2 Neut % (Auto) 60.9 Lymph % (Auto) 28.9 [place] % (Auto) 8.4 Eos % (Auto) 1.3 Baso % (Auto) 0.3 Lymph # (Auto) 1.72 [place] # (Auto) 0.5 Eos # (Auto) 0.1 Baso # (Auto) 0.0 Abs Immat Gran (auto) 0.01 Absolute Neuts (auto) 3.6 Absolute Nucleated RBC 0.000 Nucleated RBC % 0.0 % Immature Plt Fraction Sodium 136 L Potassium 4.0 Chloride 104 Carbon Dioxide 23 Anion Gap 9 BUN 29 H D Creatinine 1.44 H Estim Creat Clear Calc 21 Estimated GFR 35 L Glucose 133 H POC Capillary Glucose Calcium 9.1 Magnesium Total Bilirubin 1.6 H AST 38 H ALT 22 Alkaline Phosphatase 66 Troponin I < 0.012 NT-Pro-B Natriuret Pep 948 H Total Protein 6.9 Albumin 4.2 TSH (Reflex) 3.420 Urine Color Urine Appearance Urine pH Ur Specific [place] Urine Protein Urine Glucose (UA) Urine Ketones Ur Blood (Man) Urine Nitrate Urine Bilirubin Urine Urobilinogen Leukocyte Esterase Rfl Urine RBC Urine WBC Ur Squamous Epith Cells Urine Bacteria Urine Casts Hyaline Casts Influenza A (RT-PCR) Influenza B (RT-PCR) RSV (RT-PCR) SARS-CoV-2 RNA (RT-PCR) Imaging Radiologist's impression: EXAMINATION: XR chest 2V, 12/07/2024 14:15 CDT HISTORY: syncope COMPARISON: No comparisons available. Technique: 2 views obtained. Findings: The lungs are clear, no effusion. No pneumothorax. Mild cardiomegaly Mediastinal and hilar contours are within normal limits. Bony thorax no acute abnormality. Impression: No acute cardiopulmonary abnormality. EXAMINATION: CT brain wo jarad, 12/07/2024 14:45 CDT HISTORY: near syncopal episode COMPARISON: No comparisons available. Technique: Axial images obtained of the brain without contrast. One or more of the following dose reduction techniques were used: automated exposure control, adjustment of the mA and/or kV according to patient size, use of iterative reconstruction technique. Findings: Remote left basal ganglia lacunar infarcts. Remote left occipital infarct. No acute infarct or hemorrhage. No midline shift or mass effect. No extra-axial fluid collections. Mastoid air cells unremarkable. Sinuses and orbits unremarkable. No acute fracture. No significant facial or scalp soft tissue swelling evident. No radiopaque foreign body is seen. Impression: 1.No acute intracranial abnormality. Discharge Plan Discharge Attending physician on discharge: Misha Summers Consulting providers: Elana Jaquez Discharging Clinician: Elana Jaquez Anticipated Discharge Date/Time: 12/08/24 14:02 Patient Disposition: Home Activity: as tolerated Diet: regular Discharge Instructions: 1). Hypoglycemia: * Continue with regular eating scheduled * Monitor glucose levels * recommend carry hypoglycemic sugar packs * Encourage hydration 2). Syncopal event * Likely related to hypoglycemic event * Current imaging did not show anything acute or occlusions * [facility] was [facility] at time of [facility] also monitor for final interpretations and send to your neurologist. I recommend scheduling a follow-up appointment with Neurology. If any significant findings will call and report to neurologist. 3). Hypertension * I have changed your blood pressure medication to nifedipine 30 mg daily for better blood pressure control from the Lisinopril you were on. How can you care for yourself at home? ? Keep track of any new symptoms or changes in your symptoms. ? Rest until you feel better. ? Be safe with medicines. Take your medicines exactly as prescribed. Call your doctor if you think you are having a problem with your medicine. ? Do not drive after taking a prescription pain medicine. ? Ensure to follow-up with primary care physician as indicated and provide updated medication list provided to you at discharge. When should you call for help? Call 911 anytime you think you may need emergency care. For example, call if: ? You passed out (lost consciousness). Call your doctor now or seek immediate medical care if: ? You have new symptoms like fever, difficulty breathing, Chest pain, vomiting, or rash. ? You have new or different pain. ? You are confused and are having trouble thinking clearly. ? Your symptoms are getting worse. Watch closely for changes in your health, and be sure to contact your doctor if: ? You do not get better as expected. Patient Instructions: Antibiotic Form, Syncope (DC), Non-diabetic Hypoglycemia (DC), Near Syncope (DC), Syncope in Older Adults (DC) Patient Language: [place]ian Stand Alone Forms: General Discharge Information Follow-up/Referrals: Evelia Banda MD [Physician, Neurology] - Call for Appointment Referral Note: MRI findings Panda Irwin DO [Primary Care Provider, Internal Medicine] - 2 Weeks Discharge Medications: New nifedipine [Procardia XL] 30 mg Tablet Extended Release 24hr 30 mg PO QAM Qty: 30 0RF Continued multivitamin with minerals [Hair,Skin and Nails] Tablet 1 tablet PO DAILY iodine (kelp) Tablet 1 tablet PO DAILY Patient Comments: 150 mcg lycopene 10 mg capsule 10 mg PO DAILY Rx Instructions: administer after a meal folic acid 400 mcg tablet 0.4 mg PO DAILY dorzolamide-timolol (PF) [Cosopt (PF)] 2-0.5 % dropperette 1 drop RIGHT EYE BID Travatan Z 0.004 % drops 1 drop EACH EYE QPM ascorbic acid (vitamin C) 500 mg capsule 500 mg PO DAILY calcium 500 mg tablet 1,200 mg PO DAILY multivitamin [Daily Multi-Vitamin] Tablet 1 tablet PO DAILY cholecalciferol (vitamin D3) 50 mcg (2,000 unit) tablet 25 mcg PO DAILY ipratropium bromide 21 mcg (0.03 %) spray,non-aerosol 2 spray intranasal .qd-tid Qty: 30 1RF Rx Instructions: administer into each nostril. Aim back/up/out aspirin 81 mg tablet,chewable 81 mg PO HS triamcinolone acetonide 0.1 % cream 1 applic topical BID [id number] Tablet 3 tablet PO DAILY coenzyme Q10 100 mg capsule 200 mg PO DAILY carvedilol 6.25 mg tablet 6.25 mg PO DAILY Patient Comments: pt's confirmed she takes twice a day Rx Instructions: must administer with a meal/food levothyroxine 25 mcg tablet 50 mcg PO DAILY rosuvastatin [Crestor] 40 mg tablet 40 mg PO HS omeprazole 20 mg capsule,delayed release(DR/EC) 20 mg PO DAILY Qty: 90 3RF Rx Instructions: Take around supper time Discontinued lisinopril 20 mg tablet 20 mg PO HS Date of admission: 12/07/24 16:13 Primary Care Provider: Panda Irwin Admitting Provider: Misha Summers Attending physician on admission: Misha Summers Condition: Stable Quality VTE Prophylaxis VTE prophylaxis: mechanical ordered and pharmacologic ordered -Patient's previous records reviewed on admission -ER notes reviewed in detail on admission -discussed all findings and current treatment plan with patient/Family/POA -Consultations reviewed for recommendations -Patient's disposition for safe discharge discussed with top case assembler -radiology imaging, EKG and test results I have personally reviewed and interpreted unless otherwise specified Dictation performed by [employer] direct speech recognition software, therefore returned item clerk variants and typographical errors may occur. Hospitalist MIPS Heart Failure (Exclusion) Patient has history of Heart Transplant or Left Ventricular Assistive Device?: No IF YES, STOP HERE Heart Failure (Qualifier) Patient has current or prior documentation of LVEF less than or equal to 40%, or mod/servere depressed LVSF?: No IF NO, STOP HERE
--- NOTE | 2024-12-09 13:50 | PC.NURSE ---
Post Discharge Call performed by this RN on 12/09/24. Patient asked if she should be taking carvedilol and nifedipine together. This RN instructed her to call her doctors office to confirm with her doctor on which medications she should be taking.
== END 2024-12-08 15:15 | disposition home or self-care (01) ==
LOC: ANHED 16:13 → ANH3MEDSUR 17:16
PROVIDERS: Emergency Medicine; Nurse Practitioner Family; Admitting Provider Internal Medicine; Emergency Provider Registered Nurse; PCP Internal Medicine; Visit Provider Internal Medicine
DX: R55 Syncope and collapse (principal); E16.2 Hypoglycemia, unspecified; I12.9 Hypertensive chronic kidney disease with stage 1 through stage 4 chronic kidney disease, or unspecified chronic kidney disease; N18.32 Chronic kidney disease, stage 3b; E03.9 Hypothyroidism, unspecified; E78.5 Hyperlipidemia, unspecified; Z86.73 Personal history of transient ischemic attack (TIA), and cerebral infarction without residual deficits; Z20.822 Contact with and (suspected) exposure to COVID-19
CPT/HCPCS: 36415; 70450; 70553; 71046; 80053; 81001; 82948; 83735; 83880; 84443; 84484; 85025; 85027; 85055; 87637; 93005; 99285; A9270; A9577; G0378; J0360; J1644; J7030